=== PATIENT | male | born 1945 | race Caucasian/White ===

== ENCOUNTER 2016-02-17 15:11 | Outpatient (RCR) | payer BC, MEDICARE ==
--- OUTSIDE RECORDS SUMMARY | 2015-12-16 15:25 | XMS REPORT | Continuity of Care Document ---
Author Author [facility] Organization [facility] Address Unknown Phone Unavailable Care Team Providers Care Motorman/Woman Name Role Phone LUISILEANA DO PCP Insurance Providers Payer Name Policy Number Subscriber Name Relationship [facility] [id number] Alexx Yu 18 Self / Same As Patient Wps Medicare [id number] Alexx Yu 18 Self / Same As Patient Advance Directives Directive Response Recorded Date/Time Advance Directives No 12/25/13 9:04am Health Care Power of Pet Groomer No 12/25/13 9:04am Organ Donor No 12/25/13 9:04am Problems No known problems or medical conditions. Medications Medication Dose Route Sig Days/Qty Instructions Order Date Discontinued Date Status Atenolol 25 Mg PO TWICE A DAY 03/25/13 Active Lovastatin 10 Mg PO DAILY 03/25/13 Active Calcium Carbonate/Vitamin D3 1 Tab PO DAILY 03/25/13 Active Mu-Vits-Min Th/Lycopene/Lutein 1 Tab PO DAILY 03/25/13 Active Acetaminophen/Hydrocodone Bitart 1-2 Ea PO Q 4 - 6 HR PRN 03/27/13 12/24/13 Discontinued Hydrocodone/Acetaminophen 1-2 Each PO EVERY 6 HOURS 35 Qty 12/25/13 Active Social History Social History Problem Response Recorded Date/Time Recent Foreign Travel SEE [place] 04/27/2014 3:37pm Hospital Discharge Instructions No hospital discharge instructions. Plan of Care No plan of care. Functional Status No functional status results. Allergies, Adverse Reactions, Alerts Allergen Type Severity Reaction Status Last Updated No Known Drug Allergies Allergy Unknown Active 04/09/09 Immunizations Name Given Type Date of Pneumonia Vaccine 03/05/04 Historical Date of Influenza Vaccine 12/03/13 Historical Vital Signs Acute Vital Signs Vital Response Date/Time Height 6 ft 4 in Weight 243 lb Body Mass Index 29.6 kg/m^2 Results Laboratory Results Test Name Result Units Flags Reference Collection Date/Time Result Date/ Time Comments White Blood Count 5.3 10^3/uL 4.3-11.0 07/20/2014 2:30pm 07/20/2014 4: 34pm Red Blood Count 5.21 10^6/uL 4.35-5.85 07/20/2014 2:30pm 07/20/2014 4: 34pm Hemoglobin 15.4 G/DL 13.3-17.7 07/20/2014 2:30pm 07/20/2014 4:34pm Hematocrit 46 % 40-54 07/20/2014 2:30pm 07/20/2014 4:34pm Mean Corpuscular Volume 88 FL 80-99 07/20/2014 2:30pm 07/20/2014 4: 34pm Mean Corpuscular Hemoglobin 30 PG 25-34 07/20/2014 2:30pm 07/20/2014 4: 34pm Mean Corpuscular Hemoglobin Concent 34 G/DL 32-36 07/20/2014 2:30pm 4:34pm Red Cell Distribution Width 14.6 % H 10.0-14.5 07/20/2014 2:30pm 2014 4:34pm Platelet Count 233 10^3/uL 130-400 07/20/2014 2:30pm 07/20/2014 4:34pm Mean Platelet Volume 10.9 FL H 7.4-10.4 07/20/2014 2:30pm 07/20/2014 4: 34pm Neutrophils (%) (Auto) 59 % 42-75 07/20/2014 2:30pm 07/20/2014 4:34pm Lymphocytes (%) (Auto) 22 % 12-44 07/20/2014 2:30pm 07/20/2014 4:34pm Monocytes (%) (Auto) 14 % H 0-12 07/20/2014 2:30pm 07/20/2014 4:34pm Eosinophils (%) (Auto) 4 % 0-10 07/20/2014 2:30pm 07/20/2014 4:34pm Basophils (%) (Auto) 2 % 0-10 07/20/2014 2:30pm 07/20/2014 4:34pm Neutrophils # (Auto) 3.1 X 10^3 1.8-7.8 07/20/2014 2:30pm 07/20/2014 4: 34pm Lymphocytes # (Auto) 1.2 X 10^3 1.0-4.0 07/20/2014 2:30pm 07/20/2014 4: 34pm Monocytes # (Auto) 0.7 X 10^3 0.0-1.0 07/20/2014 2:30pm 07/20/2014 4: 34pm Eosinophils # (Auto) 0.2 10^3/uL 0.0-0.3 07/20/2014 2:30pm 07/20/2014 4 :34pm Basophils # (Auto) 0.1 10^3/uL 0.0-0.1 07/20/2014 2:30pm 07/20/2014 4: 34pm Sodium Level 138 MMOL/L 135-145 07/20/2014 2:30pm 07/20/2014 4:57pm Potassium Level 4.5 MMOL/L 3.6-5.0 07/20/2014 2:30pm 07/20/2014 4:57pm Chloride Level 106 MMOL/L 98-107 07/20/2014 2:30pm 07/20/2014 4:57pm Carbon Dioxide Level 25 MMOL/L 21-32 07/20/2014 2:30pm 07/20/2014 4: 57pm Blood Urea Nitrogen 12 MG/DL 7-18 07/20/2014 2:30pm 07/20/2014 4:57pm Creatinine 0.77 MG/DL 0.60-1.30 07/20/2014 2:30pm 07/20/2014 4:57pm BUN/Creatinine Ratio 16 07/20/2014 2:30pm 07/20/2014 4:57pm Estimat Glomerular Filtration Rate > 60 07/20/2014 2:30pm 2014 4:57pm GFR INTERPRETIVE DATA UNITS FOR ESTIMATED GFR (eGFR): mL/min/1.73 M2 REFERENCE RANGE FOR ESTIMATED GFR (eGFR) eGFR NORMAL eGFR >60 MODERATELY DECREASED eGFR 30-59 SEVERLY DECREASED eGFR 15-29 KIDNEY FAILURE <15 (OR DIALYSIS) Glucose Level 77 MG/DL 70-105 07/20/2014 2:30pm 07/20/2014 4:57pm Calcium Level 9.5 MG/DL 8.5-10.1 07/20/2014 2:30pm 07/20/2014 4:57pm Total Bilirubin 0.5 MG/DL 0.1-1.0 07/13/2014 2:30pm 07/13/2014 4:51pm Alkaline Phosphatase 104 U/L 40-136 07/13/2014 2:30pm 07/13/2014 4: 51pm Aspartate Amino Transf (AST/SGOT) 27 U/L 5-34 07/13/2014 2:30pm 2014 4:51pm Alanine Aminotransferase (ALT/SGPT) 22 U/L 0-55 07/13/2014 2:30pm 07/13 4:51pm Lactate Dehydrogenase 241 U/L H 125-220 07/13/2014 2:30pm 07/13/2014 4: 51pm Total Protein 6.3 G/DL L 6.4-8.2 07/13/2014 2:30pm 07/13/2014 4:51pm Albumin 3.9 G/DL 3.2-4.5 07/13/2014 2:30pm 07/13/2014 4:51pm White Blood Count 5.4 10^3/uL 4.3-11.0 07/01/2014 9:54am 07/01/2014 9: 57am Red Blood Count 5.08 10^6/uL 4.35-5.85 07/01/2014 9:54am 07/01/2014 9: 57am Hemoglobin 15.2 G/DL 13.3-17.7 07/01/2014 9:54am 07/01/2014 9:57am Hematocrit 44 % 40-54 07/01/2014 9:54am 07/01/2014 9:57am Mean Corpuscular Volume 87 FL 80-99 07/01/2014 9:54am 07/01/2014 9: 57am Mean Corpuscular Hemoglobin 30 PG 25-34 07/01/2014 9:54am 07/01/2014 9: 57am Mean Corpuscular Hemoglobin Concent 34 G/DL 32-36 07/01/2014 9:54 9:57am Red Cell Distribution Width 14.7 % H 10.0-14.5 07/01/2014 9:542014 9:57am Platelet Count 205 10^3/uL 130-400 07/01/2014 9:5407/01/2014 9:57am Mean Platelet Volume 10.2 FL 7.4-10.4 07/01/2014 9:5407/01/2014 9: 57am Neutrophils (%) (Auto) 64 % 42-75 07/01/2014 9:54am 07/01/2014 9:57am Lymphocytes (%) (Auto) 20 % 12-44 07/01/2014 9:5407/01/2014 9:57am Monocytes (%) (Auto) 12 % 0-12 07/01/2014 9:54am 07/01/2014 9:57am Eosinophils (%) (Auto) 4 % 0-10 07/01/2014 9:07/01/2014 9:57am Basophils (%) (Auto) 1 % 0-10 07/01/2014 9:5407/01/2014 9:57am Neutrophils # (Auto) 3.4 X 10^3 1.8-7.8 07/01/2014 9:07/01/2014 9: 57am Lymphocytes # (Auto) 1.1 X 10^3 1.0-4.0 07/01/2014 9:07/01/2014 9: 57am Monocytes # (Auto) 0.7 X 10^3 0.0-1.0 07/01/2014 9:5407/01/2014 9: 57am Eosinophils # (Auto) 0.2 10^3/uL 0.0-0.3 07/01/2014 9:5407/01/2014 9 :57am Basophils # (Auto) 0.1 10^3/uL 0.0-0.1 07/01/2014 9:5407/01/2014 9: 57am Sodium Level 140 MMOL/L 135-145 07/01/2014 9:54am 07/01/2014 10:26am Potassium Level 3.8 MMOL/L 3.6-5.0 07/01/2014 9:54am 07/01/2014 10: 26am Chloride Level 108 MMOL/L H 98-107 07/01/2014 9:54am 07/01/2014 10:26am Carbon Dioxide Level 23 MMOL/L 21-32 07/01/2014 9:54am 07/01/2014 10: 26am Blood Urea Nitrogen 10 MG/DL 7-18 07/01/2014 9:54am 07/01/2014 10:26am Creatinine 0.78 MG/DL 0.60-1.30 07/01/2014 9:54am 07/01/2014 10:26am BUN/Creatinine Ratio 13 07/01/2014 9:54am 07/01/2014 10:26am Estimat Glomerular Filtration Rate > 60 07/01/2014 9:54am 2014 10:26am GFR INTERPRETIVE DATA UNITS FOR ESTIMATED GFR (eGFR): mL/min/1.73 M2 REFERENCE RANGE FOR ESTIMATED GFR (eGFR) eGFR NORMAL eGFR >60 MODERATELY DECREASED eGFR 30-59 SEVERLY DECREASED eGFR 15-29 KIDNEY FAILURE <15 (OR DIALYSIS) Glucose Level 81 MG/DL 70-105 07/01/2014 9:5407/01/2014 10:26am Calcium Level 9.1 MG/DL 8.5-10.1 07/01/2014 9:5407/01/2014 10:26am Total Bilirubin 0.7 MG/DL 0.1-1.0 07/01/2014 9:54am 07/01/2014 10:26am Alkaline Phosphatase 115 U/L 40-136 07/01/2014 9:54am 07/01/2014 10: 26am Aspartate Amino Transf (AST/SGOT) 22 U/L 5-34 07/01/2014 9:54am 2014 10:26am Alanine Aminotransferase (ALT/SGPT) 15 U/L 0-55 07/01/2014 9:54am 07/01 10:26am Lactate Dehydrogenase 227 U/L H 125-220 07/01/2014 9:54am 07/01/2014 10: 26am Total Protein 6.3 G/DL L 6.4-8.2 07/01/2014 9:54am 07/01/2014 10:26am Albumin 4.0 G/DL 3.2-4.5 07/01/2014 9:54am 07/01/2014 10:26am Procedures No known history of procedures. Encounters Encounter Location Date/Time Discharged Recurring Via [facility] 07/20/14 2:32pm Registered Recurring Via [facility] 07/01/14 9:32am
[2015-12-16 17:01] LABS: BASOPHILS # (AUTO) 0.1 10^3/uL (0.0-0.1); BASOPHILS % (AUTO) 1 % (0-10); EOSINOPHILS # (AUTO) 0.3 10^3/uL (0.0-0.3); EOSINOPHILS % (AUTO) 4 % (0-10); LYMPHOCYTES # (AUTO) 1.4 X 10^3 (1.0-4.0); LYMPHOCYTES % (AUTO) 18 % (12-44); MEAN CORPUSCULAR HEMOGLOBIN 29 PG (25-34); MEAN CORPUSCULAR HGB CONC 33 G/DL (32-36); MEAN CORPUSCULAR VOLUME 88 FL (80-99); MEAN PLATELET VOLUME 10.3 FL (7.4-10.4); MONOCYTES # (AUTO) 0.8 X 10^3 (0.0-1.0); MONOCYTES % (AUTO) 10 % (0-12); NEUTROPHILS % (AUTO) 66 % (42-75); PLATELET COUNT 380 10^3/uL (130-400); RED BLOOD COUNT 4.49 10^6/uL (4.35-5.85); RED CELL DISTRIBUTION WIDTH 14.5 % (10.0-14.5); WHITE BLOOD COUNT 7.6 10^3/uL (4.3-11.0)
[2015-12-16 17:40] LABS: ALANINE AMINOTRANSFERASE 24 U/L (0-55); ANION GAP 10 MMOL/L (5-14); ASPARTATE AMINO TRANSFERASE 21 U/L (5-34); BILIRUBIN,TOTAL 0.3 MG/DL (0.1-1.0); BLOOD UREA NITROGEN 12 MG/DL (7-18); BUN/CREATININE RATIO 14; CARBON DIOXIDE 28 MMOL/L (21-32); CHLORIDE 103 MMOL/L (98-107); CREATININE SERUM 0.83 MG/DL (0.60-1.30); GFR ESTIMATED > 60; GLUCOSE 87 MG/DL (70-105); LACTATE DEHYDROGENASE 187 U/L (125-220); SODIUM 141 MMOL/L (135-145); TOTAL PROTEIN 6.9 G/DL (6.4-8.2)
[2016-01-13 16:30] LABS: BASOPHILS # (AUTO) 0.1 10^3/uL (0.0-0.1); BASOPHILS % (AUTO) 1 % (0-10); EOSINOPHILS # (AUTO) 0.3 10^3/uL (0.0-0.3); EOSINOPHILS % (AUTO) 4 % (0-10); LYMPHOCYTES # (AUTO) 1.2 X 10^3 (1.0-4.0); LYMPHOCYTES % (AUTO) 16 % (12-44); MEAN CORPUSCULAR HEMOGLOBIN 29 PG (25-34); MEAN CORPUSCULAR HGB CONC 33 G/DL (32-36); MEAN CORPUSCULAR VOLUME 87 FL (80-99); MEAN PLATELET VOLUME 10.9 FL (7.4-10.4); MONOCYTES # (AUTO) 0.8 X 10^3 (0.0-1.0); MONOCYTES % (AUTO) 10 % (0-12); NEUTROPHILS # (AUTO) 5.3 X 10^3 (1.8-7.8); NEUTROPHILS % (AUTO) 68 % (42-75); PLATELET COUNT 235 10^3/uL (130-400); RED BLOOD COUNT 4.84 10^6/uL (4.35-5.85); RED CELL DISTRIBUTION WIDTH 15.5 % (10.0-14.5); WHITE BLOOD COUNT 7.8 10^3/uL (4.3-11.0)
[2016-01-13 17:06] LABS: ALANINE AMINOTRANSFERASE 18 U/L (0-55); ALBUMIN 4.4 G/DL (3.2-4.5); ANION GAP 10 MMOL/L (5-14); ASPARTATE AMINO TRANSFERASE 22 U/L (5-34); BILIRUBIN,TOTAL 0.6 MG/DL (0.1-1.0); BLOOD UREA NITROGEN 13 MG/DL (7-18); BUN/CREATININE RATIO 15; CARBON DIOXIDE 26 MMOL/L (21-32); CHLORIDE 103 MMOL/L (98-107); CREATININE SERUM 0.88 MG/DL (0.60-1.30); GFR ESTIMATED > 60; GLUCOSE 95 MG/DL (70-105); LACTATE DEHYDROGENASE 266 U/L (125-220); POTASSIUM 4.3 MMOL/L (3.6-5.0); SODIUM 139 MMOL/L (135-145); TOTAL PROTEIN 6.7 G/DL (6.4-8.2)
[~2016-02-17] VITALS: Ht 193 cm; Wt 108.9 kg
[~2016-02-17 15:11] MED LIST: ACETAMINOPHEN 500 MG TAB (TYLENOL) CANCER CTR PO SCH; ATEN25TA PO; CALC-80 PO; HYDR-34 PO; HYDR-3730 PO; LOVA10TA PO; MULT-1029 PO; NS (IVPB) CANCER CENTER 250 ML IV SCH; diphenhydrAMINE 25 MG TAB (BENADRYL) CANCER CENTER PO SCH; riTUXimab 500 MG, riTUXimab FOR IV INJ CONC 200 MG in NS (IVPB) CANCER CENTER ONLY 150 ML IV SCH
== END 2016-03-09 10:13 | disposition home or self-care (01) ==
LOC: PAR 15:11
PROVIDERS: ATTEND Internal Medicine Hematology & Oncology
DX: Z51.11 Encounter for antineoplastic chemotherapy (principal); C85.80 Other specified types of non-Hodgkin lymphoma, unspecified site; Z45.2 Encounter for adjustment and management of vascular access device
CPT/HCPCS: 36591; 80053; 83615; 85025; 96413; 96523; 99213

== ENCOUNTER 2016-06-08 13:24 | Outpatient (RCR) | payer BC, MEDICARE ==
--- OUTSIDE RECORDS SUMMARY | 2016-03-16 13:23 | XMS REPORT | Continuity of Care Document ---
Author Author [facility] Organization [facility] Address Unknown Phone Unavailable Care Team Providers Care Swine Extension Field Specialist Name Role Phone LUISILEANA DO PCP Insurance Providers Payer Name Policy Number Subscriber Name Relationship [facility] [id number] Alexx Yu 18 Self / Same As Patient Wps Medicare [id number] Alexx Yu 18 Self / Same As Patient Advance Directives Directive Response Recorded Date/Time Advance Directives No 12/25/13 9:04am Health Care Power of Infrastructure Director No 12/25/13 9:04am Organ Donor No 12/25/13 [...] Encounters Encounter Location Date/Time Discharged Recurring Via [facility] 07/20/14 2:32pm Registered Recurring Via [facility] 07/01/14 9:32am
[2016-05-04 16:21] LABS: BASOPHILS # (AUTO) 0.1 10^3/uL (0.0-0.1); BASOPHILS % (AUTO) 1 % (0-10); EOSINOPHILS # (AUTO) 0.3 10^3/uL (0.0-0.3); EOSINOPHILS % (AUTO) 4 % (0-10); LYMPHOCYTES # (AUTO) 1.6 X 10^3 (1.0-4.0); LYMPHOCYTES % (AUTO) 20 % (12-44); MEAN CORPUSCULAR HEMOGLOBIN 30 PG (25-34); MEAN CORPUSCULAR HGB CONC 34 G/DL (32-36); MEAN CORPUSCULAR VOLUME 86 FL (80-99); MEAN PLATELET VOLUME 10.6 FL (7.4-10.4); MONOCYTES # (AUTO) 0.7 X 10^3 (0.0-1.0); MONOCYTES % (AUTO) 9 % (0-12); NEUTROPHILS # (AUTO) 5.3 X 10^3 (1.8-7.8); NEUTROPHILS % (AUTO) 66 % (42-75); PLATELET COUNT 216 10^3/uL (130-400); RED BLOOD COUNT 4.92 10^6/uL (4.35-5.85); RED CELL DISTRIBUTION WIDTH 14.9 % (10.0-14.5)
[2016-05-04 16:40] LABS: ALANINE AMINOTRANSFERASE 18 U/L (0-55); ALBUMIN 4.3 G/DL (3.2-4.5); ANION GAP 11 MMOL/L (5-14); ASPARTATE AMINO TRANSFERASE 26 U/L (5-34); BILIRUBIN,TOTAL 0.3 MG/DL (0.1-1.0); BLOOD UREA NITROGEN 13 MG/DL (7-18); BUN/CREATININE RATIO 13; CALCIUM 9.3 MG/DL (8.5-10.1); CARBON DIOXIDE 24 MMOL/L (21-32); CHLORIDE 103 MMOL/L (98-107); GFR ESTIMATED > 60; GLUCOSE 89 MG/DL (70-105); LACTATE DEHYDROGENASE 214 U/L (125-220); SODIUM 138 MMOL/L (135-145); TOTAL PROTEIN 6.5 G/DL (6.4-8.2)
[~2016-06-08] VITALS: Ht 193 cm; Wt 108.9 kg
[2016-06-08 16:20] LABS: BASOPHILS # (AUTO) 0.1 10^3/uL (0.0-0.1); BASOPHILS % (AUTO) 1 % (0-10); EOSINOPHILS # (AUTO) 0.3 10^3/uL (0.0-0.3); EOSINOPHILS % (AUTO) 4 % (0-10); LYMPHOCYTES # (AUTO) 1.3 X 10^3 (1.0-4.0); LYMPHOCYTES % (AUTO) 17 % (12-44); MEAN CORPUSCULAR HEMOGLOBIN 29 PG (25-34); MEAN CORPUSCULAR HGB CONC 34 G/DL (32-36); MEAN CORPUSCULAR VOLUME 88 FL (80-99); MEAN PLATELET VOLUME 11.2 FL (7.4-10.4); MONOCYTES # (AUTO) 0.6 X 10^3 (0.0-1.0); MONOCYTES % (AUTO) 8 % (0-12); NEUTROPHILS # (AUTO) 5.4 X 10^3 (1.8-7.8); NEUTROPHILS % (AUTO) 71 % (42-75); PLATELET COUNT 201 10^3/uL (130-400); RED CELL DISTRIBUTION WIDTH 15.5 % (10.0-14.5); WHITE BLOOD COUNT 7.7 10^3/uL (4.3-11.0)
[2016-06-08 16:53] LABS: ALANINE AMINOTRANSFERASE 15 U/L (0-55); ALBUMIN 4.2 G/DL (3.2-4.5); ANION GAP 11 MMOL/L (5-14); ASPARTATE AMINO TRANSFERASE 25 U/L (5-34); BILIRUBIN,TOTAL 0.7 MG/DL (0.1-1.0); BLOOD UREA NITROGEN 19 MG/DL (7-18); BUN/CREATININE RATIO 20; CALCIUM 9.2 MG/DL (8.5-10.1); CARBON DIOXIDE 25 MMOL/L (21-32); CHLORIDE 105 MMOL/L (98-107); CREATININE SERUM 0.97 MG/DL (0.60-1.30); GFR ESTIMATED > 60; GLUCOSE 113 MG/DL (70-105); LACTATE DEHYDROGENASE 212 U/L (125-220); POTASSIUM 3.9 MMOL/L (3.6-5.0); SODIUM 141 MMOL/L (135-145); TOTAL PROTEIN 6.1 G/DL (6.4-8.2)
== END 2016-06-14 | disposition home or self-care (01) ==
LOC: PAR 13:24
PROVIDERS: ATTEND Internal Medicine Hematology & Oncology
DX: Z51.11 Encounter for antineoplastic chemotherapy (principal); C85.80 Other specified types of non-Hodgkin lymphoma, unspecified site; Z45.2 Encounter for adjustment and management of vascular access device
CPT/HCPCS: 36591; 80053; 83615; 85025; 96413; 96523; 99213

== ENCOUNTER → 2016-06-29 | Outpatient (CLI) | payer BC, MEDICARE ==
[~2016-06-29] MED LIST changes: -ACETAMINOPHEN 500 MG TAB (TYLENOL) CANCER CTR PO SCH; +BARIUM SUSPENSION 2.1% (VANILLA SILQ) 450 ML PO ONE; +CATHETER FLUSH 10 ML SYR IV PRN; +IOHEXOL 350 MG/ML 100 ML (OMNIPAQUE 350) VIAL IV ONE; -NS (IVPB) CANCER CENTER 250 ML IV SCH; +NS 100 ML (IVPB) BAG IV ONE; -diphenhydrAMINE 25 MG TAB (BENADRYL) CANCER CENTER PO SCH; -riTUXimab 500 MG, riTUXimab FOR IV INJ CONC 200 MG in NS (IVPB) CANCER CENTER ONLY 150 ML IV SCH
--- NOTE | 2016-06-29 09:00 | Diagnostic Imaging Report ---
PROCEDURE: CT chest, abdomen, and pelvis with contrast. TECHNIQUE: Multiple contiguous axial images were obtained through the chest, abdomen, and pelvis after the administration of intravenous contrast. INDICATION: Follicular large cell non-Hodgkin's lymphoma. 100 mL of Omnipaque 350 is administered intravenously. COMPARISON: 09/14/2014 CT chest and 08/05/2013 PET/CT are reviewed. FINDINGS: CT CHEST: There is interval development of a bulky infracarinal lymph node mass measuring 8.1 x 7.6 x 7.2 CM. There is also a left hilar lymph node measuring 3.1 x 3.6 CM which is abutting the large subcarinal mass. No right hilar lymphadenopathy. The mediastinal mass also extends directly into the left hilar region around the left mainstem bronchus. There is also inferiorly in the chest in the retro esophageal location just above the GE junction and anterior to the descending aorta 2.8 x 2.7 CM enlarged lymph node mass. This is less than 1 cm distal to the main mediastinal mass. No other separate mediastinal stations involved. No axillary lymphadenopathy. The lungs demonstrate upper lobe predominant emphysema. There is no lung mass or suspicious nodule seen. 5 mm nodular density in the right upper lobe, image 24 is stable from 2015 suggestive of a small focal scar. The osseous structures demonstrate mild right convexity scoliosis and degenerative changes. CT abdomen and pelvis: The liver demonstrate a 1 cm cystic lesion in the left hepatic lobe without change. The gallbladder, the spleen, the pancreas, and the adrenals appear unremarkable. The spleen is not enlarged. The kidneys have symmetric enhancement and contrast excretion. There is no hydronephrosis. The abdominal aorta is normal in caliber. No para-aortic significantly enlarged lymph node is seen. The prostate is mildly enlarged measuring 5.5 CM in transverse dimension. There is no bowel obstruction. No iliac lymphadenopathy. There is however a 5.5 x 4.5 CM lymph node in the right inguinal station estimated to be about 5 CM in craniocaudal dimension. It is incompletely imaged from its inferior aspect however. IMPRESSION: Findings suggestive of lymphoma recurrence. CT chest: Bulky infracarinal mediastinal mass with extension into the left hilum and adjacent inferior retroesophageal enlarged lymph node. CT abdomen and pelvis: A 5.5 cm right inguinal lymph node mass. Dictated by: Dictated on workstation # [id number]
== END ==
LOC: RAD 07:36
PROVIDERS: ATTEND Internal Medicine Hematology & Oncology
DX: C82.59 Diffuse follicle center lymphoma, extranodal and solid organ sites (principal)
CPT/HCPCS: 71260; 74177

== ENCOUNTER 2016-07-26 11:24 | Day surgery (SDC) | payer BC, MEDICARE ==
[~2016-07-26] VITALS: Ht 185.4 cm; Wt 99.8 kg
[~2016-07-26 11:24] MED LIST changes: -BARIUM SUSPENSION 2.1% (VANILLA SILQ) 450 ML PO ONE; -CATHETER FLUSH 10 ML SYR IV PRN; -IOHEXOL 350 MG/ML 100 ML (OMNIPAQUE 350) VIAL IV ONE; -NS 100 ML (IVPB) BAG IV ONE
[2016-07-26] MEDS ORDERED: LACTATED RINGERS 1,000 ML IV PRN (11:45)
--- NOTE | 2016-07-26 12:03 | Progress Note-Pre Operative ---
Pre-Operative Progress Note H&P Reviewed The H&P was reviewed, patient examined and no changes noted. Date H&P Reviewed: July 26, 2016 Time H&P Reviewed: 12:00 Pre-Operative Diagnosis: right groin mass with hx lymphoma ORLIN BELTRE MD July 26, 2016 12:03 pm
[2016-07-26 12:13] VITALS: BP 162/88
[2016-07-26] MEDS ORDERED: CATHETER FLUSH 10 ML SYR IV PRN (12:15)
[2016-07-26] MEDS ORDERED: ACETAMINOPHEN 325 MG TABLET/CAPLET (TYLENOL) PO PRN (12:15)
[2016-07-26] MEDS ORDERED: ONDANSETRON 4 MG/2 ML (SDV) Z0FRAN IVP PRN (12:15)
[2016-07-26] MEDS ORDERED: morphine INJ 10 MG/ML 1ML (SYR OR VIAL) IVP PRN ×2 (12:15→14:45)
[2016-07-26] MEDS ORDERED: HYDROcodone/APAP 5 MG/325 MG (LORTAB) TAB PO ONE (12:15)
[2016-07-26] MEDS ORDERED: ceFAZolin 1 GM/NS 50 ML IVPB IV ONE ×2 (12:15)
[2016-07-26] MEDS ORDERED: LACTATED RINGERS 1,000 ML IV ONE (12:22)
[2016-07-26] MEDS ORDERED: fentaNYL INJECTION 100 MCG/2 ML AMP ONE (12:22)
[2016-07-26] MEDS ORDERED: proPOfol 200 MG/20 ML (DIPRIVAN) VIAL IV ONE (12:22)
[2016-07-26] MEDS ORDERED: MIDAZOLAM 2 MG/2 ML (VERSED) VIAL ONE (12:22)
[2016-07-26] MEDS ORDERED: SEVOFLURANE (ULTANE) 15 ML INHAL SOLN ONE ×3 (12:22→14:27)
[2016-07-26] MEDS ORDERED: LIDOCAINE PF 2% 10 ML (XYLOCAINE) AMP ONE (12:22)
[2016-07-26] MEDS ORDERED: BUP/EPI 0.5% 1:200,000 (SENSORCAINE) 30 ML VIAL ONE (12:27)
--- NOTE | 2016-07-26 14:11 | Progress Note-Post Operative ---
Post-Operative Progess Note Surgeon (s)/Provider Engagement Executive (s) Surgeon ORLIN BELTRE MD Provider Engagement Executive: irma curtis INSERTING PRESS OPERATOR Pre-Operative Diagnosis Right Groin Mass with Hx Lymphoma Post-Operative Diagnosis same. large deep right inguinal node (9x7cm). Procedure & Operative Findings Date of Procedure 07/26/16 Procedure Performed/Findings excision right deep inguinal lymph node (9x7cm) Anesthesia Type General LMA Estimated Blood Loss Estimated blood loss (mL): minimal Specimens/Packing Specimens Removed matted lymph nodes right inguinal region. ORLIN BELTRE MD July 26, 2016 2:11 pm
[2016-07-26] MEDS ORDERED: HYDR-3730 PO (14:15)
--- NOTE | 2016-07-26 14:18 | Discharge Inst-Surgical ---
D/C Lap Instructions-PATT New, Converted, or Re-Newed RX: RX on Chart Follow up PRN Activity as tolerated Regular Diet Symptoms to Report: Fever over 101 degree F, Nausea/Vomiting Infection Signs and Symptoms to report: Increased redness, Foul odor of wound, Increased drainage Bathing instructions: May shower Operative Area Clean/Dry; Keep incision clean/dry If any problems/questions: Contact your physician or go to Emergency Room ORLIN BELTRE MD July 26, 2016 2:18 pm
[2016-07-26] MEDS ORDERED: ONDANSETRON 4 MG/2 ML (SDV) Z0FRAN ONE (14:36)
[2016-07-26] MEDS ORDERED: HYDROmorphone (DILAUDID) 2 MG/ML VIAL ONE (14:36)
[2016-07-26] MEDS ORDERED: fentaNYL INJECTION 100 MCG/2 ML AMP IVP PRN (14:45)
[2016-07-26 15:30] VITALS: BP 122/71
[2016-07-26 16:00] VITALS: BP 129/63
[2016-07-26 16:30] VITALS: BP 134/74
[2016-07-26 16:55] VITALS: BP 134/74
--- NOTE | 2016-07-27 02:01 | OPERATIVE REPORT ---
DATE OF SERVICE: 07/26/2016 PREOPERATIVE DIAGNOSIS: Symptomatic right inguinal lymphadenopathy with history of lymphoma. POSTOPERATIVE DIAGNOSES: Symptomatic right inguinal lymphadenopathy with history of lymphoma with the dimensions of the lymph node 9 cm x 7 cm in size and considered deep inguinal. PROCEDURES: 1. Excision malignant lesion, right groin, 9 cm x 7 cm in size. 2. Intermediate flap closure. SURGEON: Dr. Beltre. INFANTRY OFFICER: Kaveh Bhakta APRN. ANESTHESIA: General laryngeal mask airway. ESTIMATED BLOOD LOSS: Minimal. FINDINGS: Large matted lymph node encompassing majority of the inguinal region as well as the femoral canal and Eden's node. DISPOSITION: The patient tolerated the procedure well. The patient is a 68-year-old male whom we have seen before in the past. We had initially seen in 03/2013 after developing lymphadenopathy in the neck. He first developed lymphadenopathy of the inguinal region in 2009 and underwent an inguinal lymph node biopsy, found to be consistent with a lipoma. He underwent 4 cycles of CHOP-R regimen, which was completed in 07/2009. This was diagnosed as a follicular B cell non-Hodgkin's lymphoma, grade I, stage IV. He had done well and did develop recurrence of lymphadenopathy in the neck and underwent an excisional biopsy of the right posterior neck, which did come back as B-cell lymphoma between grade I and II. He then underwent six cycles of chemotherapy in 04/2013, completing in 09/2013. He reports that he has done well; however, has had a recurrent lesion of the right inguinal region, which has grown significantly larger in size and because of the size of the lesion has become somewhat painful. On examination, there was approximately a 9 cm, firm lesion of the right inguinal lesion, which was fixed. He does not report any systemic symptoms of fever nor chills as well as no weight loss. DESCRIPTION OF PROCEDURE: The patient was brought to the operating room, laid supine on the table. After adequate IV pain and sedative medications and general laryngeal mask airway intubation, the abdomen and perineum were prepped and draped in standard surgical fashion. Then 0.5% Marcaine with epinephrine was then used to anesthetize the overlying skin in an oblique fashion of the right groin. Skin incision was then made using a 15 blade. Subcutaneous tissue was then dissected using electrocautery. A fixed, large, malignant-appearing mass was identified. We then proceeded with meticulous dissection of the entire lesion using electrocautery as well as blunt dissection. This lesion also did encroach into the femoral canal and encompassed Eden node. This was completely excised using careful dissection with visualization of good hemostasis. The lymph node was also adjacent to the femoral vein; however, I did not encroach upon it. Good hemostasis was observed. The specimen was sent to pathology. The wound was then closed in an intermediate fashion in layers encompassing multiple layers including the fascia, subcutaneous tissue and skin. The subcutaneous tissue using interrupted 3-0 Vicryl sutures. Skin was closed using 4-0 Monocryl running subcuticular suture. The wound was then cleaned and covered with Dermabond. The patient tolerated the procedure well. We will start IV and oral pain medication as well as a clear liquid diet. Once he is tolerating clears and has good pain control oral pain medications, ambulating well, we will discharge him home. He will await the biopsy results and then follow up with oncology for chemotherapy recommendations. Job ID: [id number] DocumentID: [id number] Dictated Date: 07/26/2016 14:25:21 [employer] Social Studies Teacher Date: 07/27/2016 00:50:20 Dictated By: ORLIN BELTRE MD
--- NOTE | 2016-07-28 07:41 | HISTORY AND PHYSICAL ---
DATE OF SERVICE: ATTENDING PHYSICIAN: Dr. Pandey and Dr. Tobin HISTORY OF PRESENT ILLNESS: The patient is a 70-year-old male who is known to us. He was initially seen in 03/2013 after developing a lymphadenopathy of the neck. This gentleman reports initially developing lymphadenopathy of the inguinal region in 2009 and underwent an inguinal lymph node biopsy, which was found to be consistent with lymphoma. He then underwent 4 cycles of CHOP-R regimen, which was completed in 07/2009. This was diagnosed as a follicular B cell non-Hodgkin's lymphoma grade 1 stage III. He states he had done well over time; however, he then developed a recurrence of the lymphadenopathy of the neck. He then underwent incisional biopsy of the lymph node of the right posterior neck, which did come back as a beta cell lymphoma grade 1 and 2. After this diagnosis was made, he underwent 6 cycles of chemotherapy from 04/2013 and completing it approximately 09/2013. He was then seen by us again in 12/2013 where he had noticed a recurrence of the lesion of the right preauricular region. He had reported that this had grown larger in size and this appeared to be well circumscribed, but there was no other lymphadenopathy identified at that time. An excisional biopsy was performed, which did come back as a low grade CD20, positive B cell non-Hodgkin lymphoma that was follicular lymphoma grade 1 to 2 of 3. He reports today for a right inguinal mass that he reports that it was first noticed approximately 3 weeks ago and has become larger in size. He reports that this is the same area that he had previously had a mass. He denies any pain as well as no fever or chills. He denies any diarrhea or constipation as well as no weight loss. PAST MEDICAL HISTORY: COPD, hypertension, hypercholesterolemia, B cell lymphoma. 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 ALLERGIES: No known drug allergies. MEDICATIONS: Atenolol 25 mg daily, lovastatin 10 mg, multivitamin daily, calcium daily. SOCIAL HISTORY: Positive for smoke, 48 pack years, negative for alcohol. FAMILY HISTORY: Father with myocardial infarction, age 67, mother with diabetes. VITAL SIGNS: Blood pressure is 116/78, current weight is 228.1 pounds at 6 foot 4. REVIEW OF SYSTEMS: This is a well-nourished male in no acute distress. He is not experiencing any shortness of breath or difficulty breathing. No chest pain, platelets or diaphoresis. No nausea or vomiting. No episodes of diarrhea or constipation. No bright red blood per rectum. No dark tarry stools. No fever or chills. No recent inadvertent weight loss. PHYSICAL EXAMINATION: CHEST: Clear. HEART: Regular. EXTREMITIES: No lower extremity edema. Negative Hohmann sign. HEENT: No scleral icterus. LYMPHATICS: No cervical lymphadenopathy. ABDOMEN: Soft, nontender, nondistended. There is a large mass identified in the inguinal region that is firm and well circumscribed. There is no pain or tenderness with palpation. This does not appear to be reducible or consistent with an inguinal hernia. There is no lymphadenopathy noted in the inguinal region. ASSESSMENT AND PLAN: A 70-year-old male with a right inguinal mass who does have a history B cell lymphoma. At this time, we will proceed with a biopsy of the right groin mass. The risks and benefits of the procedure as well as procedure and home care instructions were also explained to the patient. The patient verbalized understanding of instructions and agrees to proceed as planned. At this time, we will proceed with a biopsy of the right inguinal mass. Job ID: [id number] DocumentID: [id number] Dictated Date: 07/25/2016 17:36:19 Nail Professional Date: 07/25/2016 21:40:46 Dictated By: VICKI HAMPTON APRN
== END 2016-07-26 16:55 | disposition home or self-care (01) ==
LOC: SDC 11:24
PROVIDERS: ATTEND Surgery Pediatric Surgery
DX: C82.05 Follicular lymphoma grade I, lymph nodes of inguinal region and lower limb (principal); I10 Essential (primary) hypertension; E78.00 Pure hypercholesterolemia, unspecified; J44.9 Chronic obstructive pulmonary disease, unspecified; F17.210 Nicotine dependence, cigarettes, uncomplicated
CPT/HCPCS: 87081

== ENCOUNTER → 2016-08-22 | Outpatient (CLI) | payer BC, MEDICARE ==
[~2016-08-22] MED LIST changes: +GADOBUTROL 10 MMOL/10 ML (GADAVIST) VIAL IV ONE
--- NOTE | 2016-08-22 10:25 | Diagnostic Imaging Report ---
PROCEDURE: MR imaging of the brain with and without contrast. TECHNIQUE: Multiplanar, multisequence MR imaging of the brain was performed with and without contrast. INDICATION: Lymphoma. 10 mL of Gadavist is administered intravenously. FINDINGS: There is no diffusion restriction to suggest an acute infarct or other diffusion abnormality. There is no significant signal abnormality in the brain. No brain edema or demyelinating lesions. There is a no enhancing mass within the brain tissue or in the extra-axial space. No evidence of intracranial lymphoma. The pituitary gland is normal in size. No hypothalamic or pineal region mass. There is no hydrocephalus or extra-axial fluid collection seen. The central vascular flow-voids appear grossly unremarkable. The internal auditory canals and inner ear structures appear symmetric. There is obliteration of some of the left ethmoidal air cells probably with secretions and there is mucosal thickening in the right sphenoidal sinus which is small in size probably secondary to chronic sinusitis. The right sphenoidal sinus findings are similar to 2015 CT scan. The orbits appear symmetric. IMPRESSION: 1. No acute infarct or enhancing mass. 2. Sinus disease. Dictated by: Dictated on workstation # [id number]
== END ==
LOC: RAD 09:04
PROVIDERS: ATTEND Internal Medicine Hematology & Oncology
DX: C82.59 Diffuse follicle center lymphoma, extranodal and solid organ sites (principal); J32.9 Chronic sinusitis, unspecified
CPT/HCPCS: 70553

== ENCOUNTER 2016-09-21 10:13 | Outpatient (RCR) | payer BC, MEDICARE ==
[2016-06-29 16:17] LABS: BASOPHILS # (AUTO) 0.1 10^3/uL (0.0-0.1); BASOPHILS % (AUTO) 2 % (0-10); EOSINOPHILS # (AUTO) 0.2 10^3/uL (0.0-0.3); EOSINOPHILS % (AUTO) 3 % (0-10); LYMPHOCYTES # (AUTO) 1.2 X 10^3 (1.0-4.0); LYMPHOCYTES % (AUTO) 18 % (12-44); MEAN CORPUSCULAR HEMOGLOBIN 30 PG (25-34); MEAN CORPUSCULAR HGB CONC 34 G/DL (32-36); MEAN CORPUSCULAR VOLUME 88 FL (80-99); MEAN PLATELET VOLUME 11.1 FL (7.4-10.4); MONOCYTES # (AUTO) 0.5 X 10^3 (0.0-1.0); MONOCYTES % (AUTO) 9 % (0-12); NEUTROPHILS # (AUTO) 4.4 X 10^3 (1.8-7.8); NEUTROPHILS % (AUTO) 69 % (42-75); PLATELET COUNT 193 10^3/uL (130-400); RED BLOOD COUNT 4.87 10^6/uL (4.35-5.85); WHITE BLOOD COUNT 6.4 10^3/uL (4.3-11.0)
[2016-06-29 16:36] LABS: ALANINE AMINOTRANSFERASE 19 U/L (0-55); ALBUMIN 4.3 G/DL (3.2-4.5); ANION GAP 9 MMOL/L (5-14); ASPARTATE AMINO TRANSFERASE 26 U/L (5-34); BILIRUBIN,TOTAL 0.6 MG/DL (0.1-1.0); BLOOD UREA NITROGEN 9 MG/DL (7-18); BUN/CREATININE RATIO 12; CALCIUM 9.3 MG/DL (8.5-10.1); CARBON DIOXIDE 25 MMOL/L (21-32); CHLORIDE 104 MMOL/L (98-107); CREATININE SERUM 0.78 MG/DL (0.60-1.30); GFR ESTIMATED > 60; GLUCOSE 88 MG/DL (70-105); LACTATE DEHYDROGENASE 240 U/L (125-220); POTASSIUM 4.4 MMOL/L (3.6-5.0); SODIUM 138 MMOL/L (135-145); TOTAL PROTEIN 6.3 G/DL (6.4-8.2)
[2016-06-30 06:08] LABS: IMMUNOGLOBULIN IGA 114 mg/dL (71-263); IMMUNOGLOBULIN IGG 423 mg/dL (672-1680)
[2016-06-30 08:14] LABS: IMMUNOGLOBULIN IGM 12 mg/dL (47-209)
[2016-08-03 16:19] LABS: BASOPHILS # (AUTO) 0.2 10^3/uL (0.0-0.1); BASOPHILS % (AUTO) 2 % (0-10); EOSINOPHILS # (AUTO) 0.4 10^3/uL (0.0-0.3); EOSINOPHILS % (AUTO) 5 % (0-10); LYMPHOCYTES # (AUTO) 1.7 X 10^3 (1.0-4.0); LYMPHOCYTES % (AUTO) 21 % (12-44); MEAN CORPUSCULAR HEMOGLOBIN 30 PG (25-34); MEAN CORPUSCULAR HGB CONC 34 G/DL (32-36); MEAN CORPUSCULAR VOLUME 88 FL (80-99); MEAN PLATELET VOLUME 10.9 FL (7.4-10.4); MONOCYTES # (AUTO) 0.8 X 10^3 (0.0-1.0); MONOCYTES % (AUTO) 10 % (0-12); NEUTROPHILS # (AUTO) 5.2 X 10^3 (1.8-7.8); NEUTROPHILS % (AUTO) 63 % (42-75); PLATELET COUNT 227 10^3/uL (130-400); RED BLOOD COUNT 4.66 10^6/uL (4.35-5.85); RED CELL DISTRIBUTION WIDTH 14.8 % (10.0-14.5); WHITE BLOOD COUNT 8.4 10^3/uL (4.3-11.0)
[2016-08-03 17:03] LABS: ALANINE AMINOTRANSFERASE 18 U/L (0-55); ALBUMIN 4.3 G/DL (3.2-4.5); ANION GAP 10 MMOL/L (5-14); ASPARTATE AMINO TRANSFERASE 22 U/L (5-34); BILIRUBIN,TOTAL 0.6 MG/DL (0.1-1.0); BLOOD UREA NITROGEN 14 MG/DL (7-18); BUN/CREATININE RATIO 15; CALCIUM 9.7 MG/DL (8.5-10.1); CARBON DIOXIDE 26 MMOL/L (21-32); CHLORIDE 105 MMOL/L (98-107); CREATININE SERUM 0.93 MG/DL (0.60-1.30); GFR ESTIMATED > 60; GLUCOSE 111 MG/DL (70-105); LACTATE DEHYDROGENASE 219 U/L (125-220); SODIUM 141 MMOL/L (135-145); TOTAL PROTEIN 6.7 G/DL (6.4-8.2)
[2016-08-05 03:24] LABS: IMMUNOGLOBULIN IGA 99 mg/dL (71-263); IMMUNOGLOBULIN IGG 366 mg/dL (672-1680)
[2016-08-05 09:16] LABS: IMMUNOGLOBULIN IGM 24 mg/dL (47-209)
[~2016-09-21] VITALS: Ht 193 cm; Wt 108.9 kg
[~2016-09-21 10:13] MED LIST changes: +ACETAMINOPHEN 500 MG TAB (TYLENOL) CANCER CTR PO SCH; +CARBOPLATIN IV SCH; +D5W IV SCH; +FAMOTIDINE 20MG/2ML IV (CANCER CTR) IV SCH; +FOSAPREPITANT 150 MG/NS 150 MG IVPB (CANCER CTR) IV SCH; -GADOBUTROL 10 MMOL/10 ML (GADAVIST) VIAL IV ONE; +GEMCITABINE HCL (GENERIC) 2,000 MG in NS (IVPB) CANCER CENTER 100 ML IV SCH; +NS IV 1000 ML (CANCER CTR) 1,000 ML IV SCH; +PALONOSETRON 0.25 MG, DEXAMETHASONE 10 MG/NS 50 ML IVPB IV SCH; +diphenhydrAMINE 25 MG TAB (BENADRYL) CANCER CENTER PO SCH; +riTUXimab 500 MG, riTUXimab FOR IV INJ CONC 200 MG in NS (IVPB) CANCER CENTER ONLY 150 ML IV SCH
== END 2016-09-27 | disposition home or self-care (01) ==
LOC: PAR 10:13
PROVIDERS: ATTEND Internal Medicine Hematology & Oncology
DX: Z51.11 Encounter for antineoplastic chemotherapy (principal); C85.80 Other specified types of non-Hodgkin lymphoma, unspecified site
CPT/HCPCS: 36591; 80053; 82784; 83615; 85025; 96375; 96413; 96417; 99213

== ENCOUNTER 2016-10-12 09:07 | Outpatient (RCR) | payer BC, MEDICARE ==
[2016-08-24 09:42] LABS: BASOPHILS # (AUTO) 0.1 10^3/uL (0.0-0.1); BASOPHILS % (AUTO) 1 % (0-10); EOSINOPHILS # (AUTO) 0.2 10^3/uL (0.0-0.3); EOSINOPHILS % (AUTO) 3 % (0-10); LYMPHOCYTES # (AUTO) 1.9 X 10^3 (1.0-4.0); LYMPHOCYTES % (AUTO) 21 % (12-44); MEAN CORPUSCULAR HEMOGLOBIN 29 PG (25-34); MEAN CORPUSCULAR HGB CONC 33 G/DL (32-36); MEAN CORPUSCULAR VOLUME 89 FL (80-99); MEAN PLATELET VOLUME 10.8 FL (7.4-10.4); MONOCYTES # (AUTO) 0.7 X 10^3 (0.0-1.0); MONOCYTES % (AUTO) 8 % (0-12); NEUTROPHILS # (AUTO) 6.2 X 10^3 (1.8-7.8); NEUTROPHILS % (AUTO) 68 % (42-75); PLATELET COUNT 205 10^3/uL (130-400); RED CELL DISTRIBUTION WIDTH 14.5 % (10.0-14.5); WHITE BLOOD COUNT 9.1 10^3/uL (4.3-11.0)
[2016-08-24 10:06] LABS: ALANINE AMINOTRANSFERASE 16 U/L (0-55); ALBUMIN 4.1 GM/DL (3.2-4.5); ANION GAP 7 MMOL/L (5-14); ASPARTATE AMINO TRANSFERASE 21 U/L (5-34); BILIRUBIN,TOTAL 0.5 MG/DL (0.1-1.0); BLOOD UREA NITROGEN 11 MG/DL (7-18); BUN/CREATININE RATIO 14 (0-20); CALCIUM 9.7 MG/DL (8.5-10.1); CARBON DIOXIDE 28 MMOL/L (21-32); CHLORIDE 104 MMOL/L (98-107); CREATININE SERUM 0.78 MG/DL (0.60-1.30); GFR ESTIMATED > 60; GLUCOSE 96 MG/DL (70-105); HEMOLYSIS 4 (-100-29); ICTERUS 0.4 (-100-1.9); LACTATE DEHYDROGENASE 215 U/L (125-220); LIPEMIA 2 (-100-49); MAGNESIUM 2.2 MG/DL (1.8-2.4); POTASSIUM 4.3 MMOL/L (3.6-5.0); SODIUM 139 MMOL/L (135-145); TOTAL PROTEIN 6.7 GM/DL (6.4-8.2)
[~2016-10-12] VITALS: Ht 193 cm; Wt 108.9 kg
[~2016-10-12 09:07] MED LIST changes: +ACETAMINOPHEN 500 MG TAB (TYLENOL) CANCER CTR PO PRN; +FOSAPREPITANT 150 MG/NS 150 MG IVPB (CANCER CTR) IV PRN; -FOSAPREPITANT 150 MG/NS 150 MG IVPB (CANCER CTR) IV SCH; -NS IV 1000 ML (CANCER CTR) 1,000 ML IV SCH; +NS IV 1000 ML (CANCER CTR) IV SCH; +NS IV 500 ML (CANCER CENTER) 500 ML IV SCH; +PALONOSETRON 0.25 MG, DEXAMETHASONE 10 MG/NS 50 ML IVPB IV PRN; +PALONOSETRON 0.25 MG/5 ML IV PRN; +riTUXimab 500 MG, riTUXimab FOR IV INJ CONC 200 MG in NS (IVPB) CANCER CENTER 163 ML IV SCH; -riTUXimab 500 MG, riTUXimab FOR IV INJ CONC 200 MG in NS (IVPB) CANCER CENTER ONLY 150 ML IV SCH
[2016-10-12 09:27] LABS: BASOPHILS % (AUTO) 1 % (0-10); EOSINOPHILS # (AUTO) 0.1 10^3/uL (0.0-0.3); EOSINOPHILS % (AUTO) 1 % (0-10); LYMPHOCYTES # (AUTO) 1.7 X 10^3 (1.0-4.0); LYMPHOCYTES % (AUTO) 19 % (12-44); MEAN CORPUSCULAR HEMOGLOBIN 29 PG (25-34); MEAN CORPUSCULAR HGB CONC 33 G/DL (32-36); MEAN CORPUSCULAR VOLUME 89 FL (80-99); MEAN PLATELET VOLUME 8.9 FL (7.4-10.4); MONOCYTES # (AUTO) 0.7 X 10^3 (0.0-1.0); MONOCYTES % (AUTO) 8 % (0-12); NEUTROPHILS # (AUTO) 6.3 X 10^3 (1.8-7.8); NEUTROPHILS % (AUTO) 72 % (42-75); PLATELET COUNT 318 10^3/uL (130-400); RED BLOOD COUNT 4.08 10^6/uL (4.35-5.85); RED CELL DISTRIBUTION WIDTH 16.1 % (10.0-14.5); WHITE BLOOD COUNT 8.8 10^3/uL (4.3-11.0)
[2016-10-12 09:51] LABS: ANION GAP 8 MMOL/L (5-14); BLOOD UREA NITROGEN 12 MG/DL (7-18); BUN/CREATININE RATIO 17; CALCIUM 9.4 MG/DL (8.5-10.1); CARBON DIOXIDE 29 MMOL/L (21-32); CHLORIDE 101 MMOL/L (98-107); CREATININE SERUM 0.72 MG/DL (0.60-1.30); GFR ESTIMATED > 60; GLUCOSE 75 MG/DL (70-105); SODIUM 138 MMOL/L (135-145)
== END 2016-11-22 | disposition home or self-care (01) ==
LOC: ONC 09:07
PROVIDERS: ATTEND Internal Medicine Hematology & Oncology
DX: F17.210 Nicotine dependence, cigarettes, uncomplicated; Z51.11 Encounter for antineoplastic chemotherapy; J44.9 Chronic obstructive pulmonary disease, unspecified; C82.05 Follicular lymphoma grade I, lymph nodes of inguinal region and lower limb; E78.00 Pure hypercholesterolemia, unspecified; D80.1 Nonfamilial hypogammaglobulinemia; I10 Essential (primary) hypertension; Z79.899 Other long term (current) drug therapy
CPT/HCPCS: 36591; 80048; 80053; 83615; 83735; 84550; 85025; 96367; 96375; 96413; 96417

== ENCOUNTER → 2016-10-18 | Outpatient (CLI) | payer BC, MEDICARE ==
[~2016-10-18] MED LIST changes: -ACETAMINOPHEN 500 MG TAB (TYLENOL) CANCER CTR PO PRN; -ACETAMINOPHEN 500 MG TAB (TYLENOL) CANCER CTR PO SCH; +BARIUM SUSPENSION 2.1% (VANILLA SILQ) 450 ML PO ONE; -CARBOPLATIN IV SCH; +CATHETER FLUSH 10 ML SYR IV PRN; -D5W IV SCH; -FAMOTIDINE 20MG/2ML IV (CANCER CTR) IV SCH; -FOSAPREPITANT 150 MG/NS 150 MG IVPB (CANCER CTR) IV PRN; -GEMCITABINE HCL (GENERIC) 2,000 MG in NS (IVPB) CANCER CENTER 100 ML IV SCH; +IOHEXOL 350 MG/ML 100 ML (OMNIPAQUE 350) VIAL IV ONE; +NS 100 ML (IVPB) BAG IV ONE; -NS IV 1000 ML (CANCER CTR) IV SCH; -NS IV 500 ML (CANCER CENTER) 500 ML IV SCH; -PALONOSETRON 0.25 MG, DEXAMETHASONE 10 MG/NS 50 ML IVPB IV PRN; -PALONOSETRON 0.25 MG, DEXAMETHASONE 10 MG/NS 50 ML IVPB IV SCH; -PALONOSETRON 0.25 MG/5 ML IV PRN; -diphenhydrAMINE 25 MG TAB (BENADRYL) CANCER CENTER PO SCH; -riTUXimab 500 MG, riTUXimab FOR IV INJ CONC 200 MG in NS (IVPB) CANCER CENTER 163 ML IV SCH
--- NOTE | 2016-10-18 12:09 | Diagnostic Imaging Report ---
PROCEDURE: CT chest with contrast, CT abdomen and pelvis with and without contrast. TECHNIQUE: Pre and post intravenous contrast axial imaging of the abdomen and pelvis and post contrast axial imaging of the chest were performed. INDICATION: Large cell non-Hodgkin's lymphoma. COMPARISON: The previous CT chest, abdomen and pelvis exam of 06/29/2016 noted a bulky infracarinal mediastinal mass with extension into the left hilum. These findings were felt to be related to the patient's diagnosis of large cell non-Hodgkin's lymphoma. FINDINGS: On this exam, the mediastinal and left hilar adenopathy has diminished significantly. On the prior study, the infracarinal mass measured 7.6 x 8.1 cm. On this exam, it measures only 4.7 x 5.1 cm. The 3.1 x 3.6 cm left hilar node seen previously has also decreased in size and now measures 1.4 x 1.5 cm. No new mediastinal or hilar adenopathy has developed. The lungs remain clear. There is no sign of failure, pneumonia or pleural effusion. Heart size is stable and within normal limits. Coronary artery calcifications are again noted. The aorta is not abnormally dilated. The pulmonary arteries were not fully opacified but there is no definite defect to suggest pulmonary embolus. The thyroid gland is unremarkable. The previous CT chest, abdomen and pelvis exam also noted a 4.5 x 5.5 cm jatinder mass in the right adnexa. That mass is not identified on this study. There is a coarse area of increased density in this region measuring 2.3 x 3.0 cm. This does suggest scar formation and it is possible that the previously described mass has been resected. Correlation with the patient's history would be recommended. No other abnormal adenopathy involving the abdomen or pelvis is noted. The areas of low density within the liver seen previously are again visualized and seems stable. Most likely these are cysts. The liver is otherwise unremarkable. The spleen, gallbladder, pancreas, adrenals, kidneys, aorta and inferior vena cava show no sign of an acute abnormality. The stomach is partially filled with oral contrast and consequently difficult to assess. There is no pelvic mass or free fluid collection noted. There are a few diverticula in the sigmoid colon but there is no sign of acute diverticulitis. The appendix was not well-visualized but there are no indirect signs of acute appendicitis. The urinary bladder is grossly unremarkable. The prostate gland is borderline enlarged. The bone windows show no evidence for fracture or for destructive lesion. IMPRESSION: 1. The appearance of the chest has improved since the prior exam as the infracarinal mass and the left hilar adenopathy seen previously have diminished. There is no new abnormality involving the thorax identified. 2. The mass in the right inguinal region is no longer evident. There is a poorly defined soft tissue density in this area which could be secondary to scar formation. Correlation with the patient's surgical history would be recommended. 3. There is no other mass or adenopathy involving the abdomen or pelvis. 4. The prostate gland is borderline enlarged. Dictated by: Dictated on workstation # [id number]
== END ==
LOC: RAD 09:36
PROVIDERS: ATTEND Internal Medicine Hematology & Oncology
DX: C82.59 Diffuse follicle center lymphoma, extranodal and solid organ sites (principal)
CPT/HCPCS: 71260; 74178

== ENCOUNTER 2016-10-26 09:53 | Outpatient (RCR) | payer BC, MEDICARE ==
[~2016-10-26] VITALS: Ht 193 cm; Wt 100.7 kg
[~2016-10-26 09:53] MED LIST changes: +ACETAMINOPHEN 500 MG TAB (TYLENOL) CANCER CTR PO SCH; -BARIUM SUSPENSION 2.1% (VANILLA SILQ) 450 ML PO ONE; +CARBOPLATIN IV SCH; -CATHETER FLUSH 10 ML SYR IV PRN; +D5W IV SCH; +FAMOTIDINE 20MG/2ML IV (CANCER CTR) IV SCH; +FOSAPREPITANT 150 MG/NS 150 MG IVPB (CANCER CTR) IV SCH; +GEMCITABINE HCL (GENERIC) 2,000 MG in NS (IVPB) CANCER CENTER 100 ML IV SCH; -IOHEXOL 350 MG/ML 100 ML (OMNIPAQUE 350) VIAL IV ONE; -NS 100 ML (IVPB) BAG IV ONE; +NS IV 1000 ML (CANCER CTR) 1,000 ML IV SCH; +PALONOSETRON 0.25 MG, DEXAMETHASONE 10 MG/NS 50 ML IVPB IV SCH; +diphenhydrAMINE 25 MG TAB (BENADRYL) CANCER CENTER PO SCH; +riTUXimab 500 MG, riTUXimab FOR IV INJ CONC 200 MG in NS (IVPB) CANCER CENTER ONLY 150 ML IV SCH
== END 2016-11-14 15:07 | disposition home or self-care (01) ==
LOC: PAR 09:53
PROVIDERS: ATTEND Internal Medicine Hematology & Oncology
DX: Z51.11 Encounter for antineoplastic chemotherapy (principal); C85.80 Other specified types of non-Hodgkin lymphoma, unspecified site
CPT/HCPCS: 96367; 96375; 96413; 96417; 99213

== ENCOUNTER 2016-11-23 11:06 | Outpatient (RCR) | payer BC, MEDICARE ==
[~2016-11-23 11:06] MED LIST changes: -ACETAMINOPHEN 500 MG TAB (TYLENOL) CANCER CTR PO SCH; -CARBOPLATIN IV SCH; -D5W IV SCH; -FAMOTIDINE 20MG/2ML IV (CANCER CTR) IV SCH; -FOSAPREPITANT 150 MG/NS 150 MG IVPB (CANCER CTR) IV SCH; -GEMCITABINE HCL (GENERIC) 2,000 MG in NS (IVPB) CANCER CENTER 100 ML IV SCH; -NS IV 1000 ML (CANCER CTR) 1,000 ML IV SCH; -PALONOSETRON 0.25 MG, DEXAMETHASONE 10 MG/NS 50 ML IVPB IV SCH; -diphenhydrAMINE 25 MG TAB (BENADRYL) CANCER CENTER PO SCH; -riTUXimab 500 MG, riTUXimab FOR IV INJ CONC 200 MG in NS (IVPB) CANCER CENTER ONLY 150 ML IV SCH
[2016-11-23 11:09] LABS: BASOPHILS # (AUTO) 0.1 10^3/uL (0.0-0.1); BASOPHILS % (AUTO) 1 % (0-10); EOSINOPHILS # (AUTO) 0.5 10^3/uL (0.0-0.3); EOSINOPHILS % (AUTO) 5 % (0-10); LYMPHOCYTES # (AUTO) 1.7 X 10^3 (1.0-4.0); LYMPHOCYTES % (AUTO) 17 % (12-44); MEAN CORPUSCULAR HEMOGLOBIN 28 PG (25-34); MEAN CORPUSCULAR HGB CONC 31 G/DL (32-36); MEAN CORPUSCULAR VOLUME 91 FL (80-99); MEAN PLATELET VOLUME 9.5 FL (7.4-10.4); MONOCYTES # (AUTO) 1.3 X 10^3 (0.0-1.0); MONOCYTES % (AUTO) 13 % (0-12); NEUTROPHILS # (AUTO) 6.4 X 10^3 (1.8-7.8); NEUTROPHILS % (AUTO) 65 % (42-75); PLATELET COUNT 269 10^3/uL (130-400); RED CELL DISTRIBUTION WIDTH 18.6 % (10.0-14.5)
[2016-11-23] MEDS ORDERED: diphenhydrAMINE 25 MG TAB (BENADRYL) CANCER CENTER PO ONE (11:39)
[2016-11-23] MEDS ORDERED: ACETAMINOPHEN 500 MG TAB (TYLENOL) CANCER CTR ONE (11:39)
[2016-11-23 11:40] LABS: ALANINE AMINOTRANSFERASE 84 U/L (0-55); ALBUMIN 3.5 GM/DL (3.2-4.5); ANION GAP 8 MMOL/L (5-14); ASPARTATE AMINO TRANSFERASE 46 U/L (5-34); BILIRUBIN,TOTAL 0.3 MG/DL (0.1-1.0); BLOOD UREA NITROGEN 15 MG/DL (7-18); BUN/CREATININE RATIO 21; CALCIUM 9.2 MG/DL (8.5-10.1); CARBON DIOXIDE 27 MMOL/L (21-32); CHLORIDE 102 MMOL/L (98-107); CREATININE SERUM 0.72 MG/DL (0.60-1.30); GFR ESTIMATED > 60; GLUCOSE 93 MG/DL (70-105); POTASSIUM 4.1 MMOL/L (3.6-5.0); SODIUM 137 MMOL/L (135-145); TOTAL PROTEIN 5.8 GM/DL (6.4-8.2)
[2016-11-23] MEDS ORDERED: IVIG 20 GM (PRIVIGEN) CANCER C 200 ML IV SCH (12:00)
[2016-11-23] MEDS ORDERED: diphenhydrAMINE 25 MG TAB (BENADRYL) CANCER CENTER PO SCH (12:00)
[2016-11-23] MEDS ORDERED: ACETAMINOPHEN 500 MG TAB (TYLENOL) CANCER CTR PO PRN (12:00)
== END 2016-12-02 | disposition home or self-care (01) ==
LOC: ONC 11:06
PROVIDERS: ATTEND Internal Medicine Hematology & Oncology
DX: C82.05 Follicular lymphoma grade I, lymph nodes of inguinal region and lower limb (principal); D80.1 Nonfamilial hypogammaglobulinemia; I10 Essential (primary) hypertension; E78.00 Pure hypercholesterolemia, unspecified; J44.9 Chronic obstructive pulmonary disease, unspecified; F17.210 Nicotine dependence, cigarettes, uncomplicated; Z79.899 Other long term (current) drug therapy
CPT/HCPCS: 36591; 80053; 85025; 96365; 96366

== ENCOUNTER → 2017-02-01 | Outpatient (CLI) | payer BC, MEDICARE ==
[~2017-02-01] MED LIST changes: +BARIUM SUSPENSION 2.1% (VANILLA SILQ) 450 ML PO ONE; +CATHETER FLUSH 10 ML SYR IV PRN; +IOHEXOL 350 MG/ML 100 ML (OMNIPAQUE 350) VIAL IV ONE; +NS 100 ML (IVPB) BAG IV ONE
--- NOTE | 2017-02-01 13:02 | Diagnostic Imaging Report ---
PROCEDURE: CT chest with contrast, CT abdomen and pelvis with and without contrast. TECHNIQUE: Pre and post intravenous contrast axial imaging of the abdomen and pelvis and post contrast axial imaging of the chest were performed. INDICATION: Non-Hodgkin's lymphoma. 100 mL of Omnipaque 350 is administered intravenously. COMPARISON: 10/18/16. FINDINGS: CT chest: There is an infracarinal mass measuring 4.4 x 3.7 cm compared to 5.1 x 4.7 cm on the previous exam. It is craniocaudally 3.7 cm compared to 5.7 cm on the previous study. The adjacent esophagus is inseparable from this mass and demonstrates mild nonspecific wall thickening. There is soft tissue thickening around the left mainstem bronchus. Previously seen left hilar lymph node is smaller compared to the prior study now measuring 1 cm. No other areas of lymphadenopathy in the chest seen. No axillary lymphadenopathy. The thoracic aorta is normal in caliber. The heart size is normal. No pleural or pericardial effusion. The lungs demonstrate no significant consolidation. There is mild upper lobe predominant emphysema. The osseous structures demonstrate compression fractures at multiple levels in the thoracic spine which are likely to be osteoporotic with no definite underlying sclerotic or lytic mass seen. Findings are similar to 10/18/[address] abdomen and pelvis: Hypodense lesions in the left hepatic lobe and caudate lobe of the liver similar to previous study are again noted up to 1.6 cm in size are likely related to simple cysts. No calcified gallstones. The spleen is not enlarged. The pancreas and adrenal glands appear unremarkable. There is fatty stranding seen in the small bowel mesentery. No significant lymphadenopathy, however, is seen. No para-aortic significantly enlarged lymph nodes are noted. The kidneys have symmetric enhancement and contrast excretion. There is no hydronephrosis. The unenhanced phase demonstrates no stones. No significant free fluid or fluid collection in the abdomen or pelvis is seen. The prostate is enlarged measuring 5.6 cm in transverse dimension. Nonspecific mild thickening in the anterior aspect of the urinary bladder is seen, improved from the previous exam. Focal area of soft tissue thickening in the right inguinal region is again noted measuring 2.6 x 1.6 cm presumably related to scarring. It is minimally smaller compared to the previous exam measurement of 3.1 x 2.3 cm. The osseous structures demonstrate suggestion of osteopenia with chronic compression fractures of L1 and L4 levels. IMPRESSION: CT chest: The 4.3 cm infracarinal mass is decreased in size compared to 10/18/2016 exam. Also, the previously seen left hilar lymph node is improved, now borderline in size up to [address] abdomen and pelvis: 1. Nonspecific slight stranding in the mesentery of the small bowel with no discrete mass or lymphadenopathy. Followup exams recommended. 2. Decreased soft tissue density in the right groin probably related to scarring. Dictated by: Dictated on workstation # [id number]
== END ==
LOC: RAD 09:28
PROVIDERS: ATTEND Internal Medicine Hematology & Oncology
DX: C82.59 Diffuse follicle center lymphoma, extranodal and solid organ sites (principal); D80.1 Nonfamilial hypogammaglobulinemia
CPT/HCPCS: 71260; 74178

== ENCOUNTER 2017-03-01 14:08 | Outpatient (RCR) | payer OTHER, MEDICARE ==
[2016-12-21 09:11] LABS: BASOPHILS # (AUTO) 0.1 10^3/uL (0.0-0.1); BASOPHILS % (AUTO) 1 % (0-10); EOSINOPHILS # (AUTO) 0.3 10^3/uL (0.0-0.3); EOSINOPHILS % (AUTO) 4 % (0-10); HEMATOCRIT 39 % (40-54); HEMOGLOBIN 12.5 G/DL (13.3-17.7); LYMPHOCYTES # (AUTO) 1.4 X 10^3 (1.0-4.0); LYMPHOCYTES % (AUTO) 24 % (12-44); MEAN CORPUSCULAR HEMOGLOBIN 29 PG (25-34); MEAN CORPUSCULAR HGB CONC 32 G/DL (32-36); MEAN CORPUSCULAR VOLUME 90 FL (80-99); MEAN PLATELET VOLUME 10.6 FL (7.4-10.4); MONOCYTES # (AUTO) 0.8 X 10^3 (0.0-1.0); MONOCYTES % (AUTO) 13 % (0-12); NEUTROPHILS # (AUTO) 3.4 X 10^3 (1.8-7.8); NEUTROPHILS % (AUTO) 58 % (42-75); PLATELET COUNT 238 10^3/uL (130-400); RED BLOOD COUNT 4.38 10^6/uL (4.35-5.85); RED CELL DISTRIBUTION WIDTH 17.4 % (10.0-14.5); WHITE BLOOD COUNT 5.9 10^3/uL (4.3-11.0)
[2016-12-21 09:30] LABS: ALANINE AMINOTRANSFERASE 19 U/L (0-55); ALKALINE PHOSPHATASE 98 U/L (40-136); BILIRUBIN,TOTAL 0.4 MG/DL (0.1-1.0); BUN/CREATININE RATIO 14; CALCIUM 9.2 MG/DL (8.5-10.1); CARBON DIOXIDE 26 MMOL/L (21-32); CHLORIDE 106 MMOL/L (98-107); CREATININE SERUM 0.73 MG/DL (0.60-1.30); GFR ESTIMATED > 60; GLUCOSE 85 MG/DL (70-105); POTASSIUM 3.9 MMOL/L (3.6-5.0); SODIUM 139 MMOL/L (135-145); TOTAL PROTEIN 6.6 GM/DL (6.4-8.2)
[2017-01-18 09:25] LABS: BASOPHILS # (AUTO) 0.1 10^3/uL (0.0-0.1); BASOPHILS % (AUTO) 1 % (0-10); EOSINOPHILS # (AUTO) 0.2 10^3/uL (0.0-0.3); EOSINOPHILS % (AUTO) 3 % (0-10); HEMATOCRIT 41 % (40-54); HEMOGLOBIN 13.6 G/DL (13.3-17.7); LYMPHOCYTES # (AUTO) 1.5 X 10^3 (1.0-4.0); LYMPHOCYTES % (AUTO) 22 % (12-44); MEAN CORPUSCULAR HEMOGLOBIN 29 PG (25-34); MEAN CORPUSCULAR HGB CONC 33 G/DL (32-36); MEAN CORPUSCULAR VOLUME 88 FL (80-99); MEAN PLATELET VOLUME 10.2 FL (7.4-10.4); MONOCYTES # (AUTO) 0.8 X 10^3 (0.0-1.0); MONOCYTES % (AUTO) 12 % (0-12); NEUTROPHILS # (AUTO) 4.3 X 10^3 (1.8-7.8); NEUTROPHILS % (AUTO) 62 % (42-75); PLATELET COUNT 242 10^3/uL (130-400); RED BLOOD COUNT 4.69 10^6/uL (4.35-5.85); RED CELL DISTRIBUTION WIDTH 16.2 % (10.0-14.5); WHITE BLOOD COUNT 6.8 10^3/uL (4.3-11.0)
[2017-01-18 09:47] LABS: ALANINE AMINOTRANSFERASE 17 U/L (0-55); ALBUMIN 3.9 GM/DL (3.2-4.5); ALKALINE PHOSPHATASE 96 U/L (40-136); BILIRUBIN,TOTAL 0.4 MG/DL (0.1-1.0); BUN/CREATININE RATIO 21; CALCIUM 9.3 MG/DL (8.5-10.1); CARBON DIOXIDE 24 MMOL/L (21-32); CHLORIDE 109 MMOL/L (98-107); GFR ESTIMATED > 60; GLUCOSE 89 MG/DL (70-105); SODIUM 142 MMOL/L (135-145); TOTAL PROTEIN 6.4 GM/DL (6.4-8.2)
[2017-01-24 13:32] LABS: BASOPHILS % (AUTO) 0 % (0-10); EOSINOPHILS % (AUTO) 0 % (0-10); HEMATOCRIT 42 % (40-54); HEMOGLOBIN 14.4 G/DL (13.3-17.7); LYMPHOCYTES # (AUTO) 0.7 X 10^3 (1.0-4.0); LYMPHOCYTES % (AUTO) 14 % (12-44); MEAN CORPUSCULAR HEMOGLOBIN 30 PG (25-34); MEAN CORPUSCULAR HGB CONC 35 G/DL (32-36); MEAN CORPUSCULAR VOLUME 86 FL (80-99); MONOCYTES % (AUTO) 1 % (0-12); NEUTROPHILS # (AUTO) 4.5 X 10^3 (1.8-7.8); NEUTROPHILS % (AUTO) 86 % (42-75); PLATELET COUNT 170 10^3/uL (130-400); RED BLOOD COUNT 4.85 10^6/uL (4.35-5.85); RED CELL DISTRIBUTION WIDTH 15.5 % (10.0-14.5); WHITE BLOOD COUNT 5.3 10^3/uL (4.3-11.0)
[2017-01-24 13:50] LABS: BUN/CREATININE RATIO 26; CALCIUM 9.3 MG/DL (8.5-10.1); CARBON DIOXIDE 24 MMOL/L (21-32); CHLORIDE 104 MMOL/L (98-107); CREATININE SERUM 0.82 MG/DL (0.60-1.30); GFR ESTIMATED > 60; GLUCOSE 127 MG/DL (70-105); POTASSIUM 4.7 MMOL/L (3.6-5.0); SODIUM 139 MMOL/L (135-145)
[2017-02-08 09:29] LABS: BASOPHILS % (AUTO) 1 % (0-10); EOSINOPHILS % (AUTO) 0 % (0-10); HEMATOCRIT 41 % (40-54); HEMOGLOBIN 13.8 G/DL (13.3-17.7); LYMPHOCYTES # (AUTO) 2.1 X 10^3 (1.0-4.0); LYMPHOCYTES % (AUTO) 45 % (12-44); MEAN CORPUSCULAR HEMOGLOBIN 29 PG (25-34); MEAN CORPUSCULAR HGB CONC 33 G/DL (32-36); MEAN CORPUSCULAR VOLUME 88 FL (80-99); MEAN PLATELET VOLUME 9.8 FL (7.4-10.4); MONOCYTES # (AUTO) 0.3 X 10^3 (0.0-1.0); MONOCYTES % (AUTO) 7 % (0-12); NEUTROPHILS # (AUTO) 2.2 X 10^3 (1.8-7.8); NEUTROPHILS % (AUTO) 48 % (42-75); PLATELET COUNT 317 10^3/uL (130-400); RED BLOOD COUNT 4.69 10^6/uL (4.35-5.85); RED CELL DISTRIBUTION WIDTH 16.1 % (10.0-14.5); WHITE BLOOD COUNT 4.6 10^3/uL (4.3-11.0)
[2017-02-08 09:46] LABS: ALANINE AMINOTRANSFERASE 28 U/L (0-55); ALBUMIN 4.1 GM/DL (3.2-4.5); ALKALINE PHOSPHATASE 128 U/L (40-136); BILIRUBIN,TOTAL 0.2 MG/DL (0.1-1.0); BUN/CREATININE RATIO 18; CALCIUM 9.9 MG/DL (8.5-10.1); CARBON DIOXIDE 24 MMOL/L (21-32); CHLORIDE 106 MMOL/L (98-107); CREATININE SERUM 0.73 MG/DL (0.60-1.30); GFR ESTIMATED > 60; GLUCOSE 121 MG/DL (70-105); SODIUM 139 MMOL/L (135-145); TOTAL PROTEIN 7.4 GM/DL (6.4-8.2)
[2017-02-15 09:18] LABS: BASOPHILS # (AUTO) 0.1 10^3/uL (0.0-0.1); BASOPHILS % (AUTO) 1 % (0-10); EOSINOPHILS # (AUTO) 0.1 10^3/uL (0.0-0.3); EOSINOPHILS % (AUTO) 1 % (0-10); HEMATOCRIT 41 % (40-54); HEMOGLOBIN 13.6 G/DL (13.3-17.7); LYMPHOCYTES # (AUTO) 2.5 X 10^3 (1.0-4.0); LYMPHOCYTES % (AUTO) 34 % (12-44); MEAN CORPUSCULAR HEMOGLOBIN 29 PG (25-34); MEAN CORPUSCULAR HGB CONC 33 G/DL (32-36); MEAN CORPUSCULAR VOLUME 87 FL (80-99); MEAN PLATELET VOLUME 10.1 FL (7.4-10.4); MONOCYTES # (AUTO) 1.4 X 10^3 (0.0-1.0); MONOCYTES % (AUTO) 19 % (0-12); NEUTROPHILS # (AUTO) 3.4 X 10^3 (1.8-7.8); NEUTROPHILS % (AUTO) 45 % (42-75); PLATELET COUNT 265 10^3/uL (130-400); RED BLOOD COUNT 4.68 10^6/uL (4.35-5.85); RED CELL DISTRIBUTION WIDTH 16.4 % (10.0-14.5); WHITE BLOOD COUNT 7.4 10^3/uL (4.3-11.0)
[2017-02-15 09:37] LABS: ALANINE AMINOTRANSFERASE 23 U/L (0-55); ALBUMIN 3.9 GM/DL (3.2-4.5); ALKALINE PHOSPHATASE 109 U/L (40-136); BILIRUBIN,TOTAL 0.2 MG/DL (0.1-1.0); BUN/CREATININE RATIO 20; CALCIUM 9.2 MG/DL (8.5-10.1); CARBON DIOXIDE 23 MMOL/L (21-32); CHLORIDE 105 MMOL/L (98-107); CREATININE SERUM 0.79 MG/DL (0.60-1.30); GFR ESTIMATED > 60; GLUCOSE 97 MG/DL (70-105); POTASSIUM 4.1 MMOL/L (3.6-5.0); SODIUM 137 MMOL/L (135-145)
[2017-02-22 12:51] LABS: BASOPHILS # (AUTO) 0.1 10^3/uL (0.0-0.1); BASOPHILS % (AUTO) 0 % (0-10); EOSINOPHILS % (AUTO) 0 % (0-10); HEMATOCRIT 42 % (40-54); HEMOGLOBIN 14.4 G/DL (13.3-17.7); LYMPHOCYTES # (AUTO) 2.8 X 10^3 (1.0-4.0); LYMPHOCYTES % (AUTO) 16 % (12-44); MEAN CORPUSCULAR HEMOGLOBIN 30 PG (25-34); MEAN CORPUSCULAR HGB CONC 35 G/DL (32-36); MEAN CORPUSCULAR VOLUME 85 FL (80-99); MEAN PLATELET VOLUME 10.3 FL (7.4-10.4); MONOCYTES # (AUTO) 0.2 X 10^3 (0.0-1.0); MONOCYTES % (AUTO) 1 % (0-12); NEUTROPHILS # (AUTO) 13.9 X 10^3 (1.8-7.8); NEUTROPHILS % (AUTO) 82 % (42-75); PLATELET COUNT 134 10^3/uL (130-400); RED BLOOD COUNT 4.86 10^6/uL (4.35-5.85)
[2017-02-22 13:08] LABS: BUN/CREATININE RATIO 28; CALCIUM 9.3 MG/DL (8.5-10.1); CARBON DIOXIDE 24 MMOL/L (21-32); CHLORIDE 103 MMOL/L (98-107); CREATININE SERUM 0.76 MG/DL (0.60-1.30); GFR ESTIMATED > 60; GLUCOSE 133 MG/DL (70-105); POTASSIUM 4.6 MMOL/L (3.6-5.0); SODIUM 139 MMOL/L (135-145)
[~2017-03-01] VITALS: Ht 193 cm; Wt 104.8 kg
[~2017-03-01 14:08] MED LIST changes: +ACETAMINOPHEN 500 MG TAB (TYLENOL) CANCER CTR PO PRN; -BARIUM SUSPENSION 2.1% (VANILLA SILQ) 450 ML PO ONE; +CARBOPLATIN IV SCH; -CATHETER FLUSH 10 ML SYR IV PRN; +D5W IV SCH; +FAMOTIDINE 20MG/2ML IV (CANCER CTR) IV SCH; +FOSAPREPITANT DIMEGLUMINE 150 MG in NS (IVPB) CANCER CENTER ONLY 150 ML IV SCH; +GEMCITABINE HCL (GENERIC) 2,000 MG in NS (IVPB) CANCER CENTER 100 ML IV SCH; -IOHEXOL 350 MG/ML 100 ML (OMNIPAQUE 350) VIAL IV ONE; +IVIG 20 GM (PRIVIGEN) CANCER C 200 ML IV SCH; -NS 100 ML (IVPB) BAG IV ONE; +NS IV 500 ML (CANCER CENTER) 500 ML ONE; +NS IV 500 ML (CANCER CENTER) IV SCH; +PALONOSETRON 0.25 MG, DEXAMETHASONE 10 MG/NS 50 ML IVPB IV PRN; +diphenhydrAMINE 25 MG TAB (BENADRYL) CANCER CENTER PO SCH; +riTUXimab 500 MG, riTUXimab FOR IV INJ CONC 200 MG in NS (IVPB) CANCER CENTER ONLY 150 ML IV SCH
== END 2017-03-15 10:27 | disposition home or self-care (01) ==
LOC: ONC 14:08
PROVIDERS: ATTEND Internal Medicine Hematology & Oncology
DX: C82.05 Follicular lymphoma grade I, lymph nodes of inguinal region and lower limb (principal); D80.1 Nonfamilial hypogammaglobulinemia; I10 Essential (primary) hypertension; E78.00 Pure hypercholesterolemia, unspecified; J44.9 Chronic obstructive pulmonary disease, unspecified; F17.210 Nicotine dependence, cigarettes, uncomplicated; Z79.899 Other long term (current) drug therapy
CPT/HCPCS: 36415; 36591; 80048; 80053; 83615; 85025; 96365; 96366; 96367; 96375; 96413; 96417

== ENCOUNTER → 2017-03-29 | Outpatient (CLI) | payer OTHER, MEDICARE ==
[~2017-03-29] MED LIST changes: -ACETAMINOPHEN 500 MG TAB (TYLENOL) CANCER CTR PO PRN; -CARBOPLATIN IV SCH; -D5W IV SCH; -FAMOTIDINE 20MG/2ML IV (CANCER CTR) IV SCH; -FOSAPREPITANT DIMEGLUMINE 150 MG in NS (IVPB) CANCER CENTER ONLY 150 ML IV SCH; -GEMCITABINE HCL (GENERIC) 2,000 MG in NS (IVPB) CANCER CENTER 100 ML IV SCH; -IVIG 20 GM (PRIVIGEN) CANCER C 200 ML IV SCH; -NS IV 500 ML (CANCER CENTER) 500 ML ONE; -NS IV 500 ML (CANCER CENTER) IV SCH; -PALONOSETRON 0.25 MG, DEXAMETHASONE 10 MG/NS 50 ML IVPB IV PRN; -diphenhydrAMINE 25 MG TAB (BENADRYL) CANCER CENTER PO SCH; -riTUXimab 500 MG, riTUXimab FOR IV INJ CONC 200 MG in NS (IVPB) CANCER CENTER ONLY 150 ML IV SCH
[2017-03-29] MEDS: IOHEXOL 350 MG/ML 100 ML (OMNIPAQUE 350) VIAL IV ONE (09:05)
[2017-03-29] MEDS: NS 100 ML (IVPB) BAG IV ONE (09:06)
[2017-03-29] MEDS: BARIUM SUSPENSION 2.1% (VANILLA SILQ) 450 ML PO ONE (09:06)
[2017-03-29] MEDS: CATHETER FLUSH 10 ML SYR IV PRN (09:06)
--- NOTE | 2017-03-29 10:44 | Diagnostic Imaging Report ---
PROCEDURE: CT chest with contrast, CT abdomen and pelvis with and without contrast. TECHNIQUE: Pre and post intravenous contrast axial imaging of the abdomen and pelvis and post contrast axial imaging of the chest were performed. INDICATION: Lymphoma, followup. COMPARISON: Correlation is made with prior CT from 02/01/2017. FINDINGS: CT chest: No axillary lymphadenopathy is detected. No hilar lymphadenopathy is detected. The previously noted infrahilar mass appears to be very similar when compared with prior study measuring approximately 4.4 cm AP x 4.0 cm transverse compared with 4.4 cm AP x 3.7 cm transverse. Again this is inseparable from the esophagus. Soft tissue thickening surrounding the left mainstem bronchus is again noted. No paracardial effusion is detected. There does appear to be trace left pleural fluid present. No parenchymal consolidation is seen. No nodules are detected. No masses are detected. IMPRESSION: Overall stable CT of the chest when compared with exam from 02/01/2017. Infrahilar mass is without significant change. There does appear to be trace left effusion on today's study. CT abdomen and pelvis: Well-defined low densities in the left lobe of liver and caudate appear stable and most consistent with cysts. No new liver mass is identified. The gallbladder is unremarkable. The pancreas and spleen are unremarkable. No adrenal mass is identified. Kidneys are unremarkable. Aorta is calcified but nonaneurysmal. No central retroperitoneal lymphadenopathy is seen. There is some continued stranding near the root of the mesentery but no definite mesenteric lymphadenopathy is seen. The small and large bowel loops are of normal caliber. There is no ascites. The bladder and prostate are stable. No definite inguinal or iliac lymphadenopathy is seen. IMPRESSION: Stable CT of the abdomen and pelvis when compared with exam from 02/01/2017. Dictated by: Dictated on workstation # [id number]
== END ==
LOC: RAD 08:51
PROVIDERS: ATTEND Internal Medicine Hematology & Oncology
DX: Z08 Encounter for follow-up examination after completed treatment for malignant neoplasm (principal); R91.8 Other nonspecific abnormal finding of lung field; Z85.72 Personal history of non-Hodgkin lymphomas
CPT/HCPCS: 71260; 74178

== ENCOUNTER → 2017-05-02 | Outpatient (CLI) | payer OTHER, MEDICARE ==
[~2017-05-02] MED LIST changes: +RT-ALBUTEROL SULF 2.5 MG/3 ML PRE-MIX VIAL INH ONE
== END ==
LOC: RT 13:45
PROVIDERS: ATTEND Internal Medicine Hematology & Oncology
DX: C82.59 Diffuse follicle center lymphoma, extranodal and solid organ sites (principal)
CPT/HCPCS: 94060; 94726; 94729

== ENCOUNTER → 2017-05-08 | Outpatient (CLI) | payer OTHER, MEDICARE ==
[~2017-05-08] MED LIST changes: -RT-ALBUTEROL SULF 2.5 MG/3 ML PRE-MIX VIAL INH ONE
--- NOTE | 2017-05-08 17:06 | Diagnostic Imaging Report ---
INDICATION: Non-Hodgkin's lymphoma. COMPARISON: Comparison is made with prior PET/CT from 08/05/2013. TECHNIQUE: Serum blood glucose level at the time of injection was 101 mg/dL. The patient was administered 13.2 mCi of F-18 FDG administered in the right antecubital location. PET imaging was performed from the top of the head to the mid thighs. A noncontrast CT imaging was performed for anatomic correlation and attenuation correction. FINDINGS: There is normal symmetric uptake of activity within the brain. Neck soft tissues are unremarkable. No hypermetabolism is seen. Imaging through the chest demonstrates physiologic activity within the left ventricular myocardium. No hilar or mediastinal hypermetabolism is seen. Axillae are unremarkable. Physiologic activity within liver and spleen as well as the GI and genitourinary tracts is identified. No suspicious hypermetabolism is seen. There is physiologic activity within the bladder. IMPRESSION: Stable PET/CT when compared with prior examination from 08/05/2013. No suspicious region of hypermetabolism is seen to suggest a recurrent lymphoma or neoplasm. Dictated by: Dictated on workstation # [id number]
== END ==
LOC: RAD 09:05
PROVIDERS: ATTEND Internal Medicine Hematology & Oncology
DX: C82.59 Diffuse follicle center lymphoma, extranodal and solid organ sites (principal)

== ENCOUNTER 2017-06-07 12:14 | Outpatient (RCR) | payer OTHER, MEDICARE ==
[2017-03-15 10:10] LABS: BASOPHILS % (AUTO) 0 % (0-10); EOSINOPHILS % (AUTO) 0 % (0-10); HEMATOCRIT 39 % (40-54); HEMOGLOBIN 13.3 G/DL (13.3-17.7); LYMPHOCYTES # (AUTO) 3.2 X 10^3 (1.0-4.0); LYMPHOCYTES % (AUTO) 22 % (12-44); MEAN CORPUSCULAR HEMOGLOBIN 30 PG (25-34); MEAN CORPUSCULAR HGB CONC 34 G/DL (32-36); MEAN CORPUSCULAR VOLUME 88 FL (80-99); MEAN PLATELET VOLUME 10.3 FL (7.4-10.4); MONOCYTES # (AUTO) 0.8 X 10^3 (0.0-1.0); MONOCYTES % (AUTO) 6 % (0-12); NEUTROPHILS # (AUTO) 10.7 X 10^3 (1.8-7.8); NEUTROPHILS % (AUTO) 73 % (42-75); PLATELET COUNT 290 10^3/uL (130-400); RED BLOOD COUNT 4.46 10^6/uL (4.35-5.85); RED CELL DISTRIBUTION WIDTH 17.7 % (10.0-14.5); WHITE BLOOD COUNT 14.7 10^3/uL (4.3-11.0)
[2017-03-15 10:32] LABS: ALANINE AMINOTRANSFERASE 31 U/L (0-55); ALBUMIN 3.8 GM/DL (3.2-4.5); ALKALINE PHOSPHATASE 100 U/L (40-136); BILIRUBIN,TOTAL 0.3 MG/DL (0.1-1.0); BUN/CREATININE RATIO 15; CALCIUM 9.4 MG/DL (8.5-10.1); CARBON DIOXIDE 22 MMOL/L (21-32); CHLORIDE 107 MMOL/L (98-107); CREATININE SERUM 0.75 MG/DL (0.60-1.30); GFR ESTIMATED > 60; GLUCOSE 159 MG/DL (70-105); POTASSIUM 3.8 MMOL/L (3.6-5.0); SODIUM 140 MMOL/L (135-145); TOTAL PROTEIN 6.9 GM/DL (6.4-8.2)
[2017-03-22 10:08] LABS: BASOPHILS % (AUTO) 0 % (0-10); EOSINOPHILS % (AUTO) 0 % (0-10); HEMATOCRIT 36 % (40-54); HEMOGLOBIN 12.2 G/DL (13.3-17.7); LYMPHOCYTES % (AUTO) 21 % (12-44); MEAN CORPUSCULAR HEMOGLOBIN 30 PG (25-34); MEAN CORPUSCULAR HGB CONC 34 G/DL (32-36); MEAN CORPUSCULAR VOLUME 88 FL (80-99); MONOCYTES # (AUTO) 0.3 X 10^3 (0.0-1.0); MONOCYTES % (AUTO) 4 % (0-12); NEUTROPHILS # (AUTO) 7.1 X 10^3 (1.8-7.8); NEUTROPHILS % (AUTO) 75 % (42-75); PLATELET COUNT 158 10^3/uL (130-400); RED CELL DISTRIBUTION WIDTH 16.9 % (10.0-14.5); WHITE BLOOD COUNT 9.5 10^3/uL (4.3-11.0)
[2017-03-22 10:33] LABS: ALANINE AMINOTRANSFERASE 58 U/L (0-55); ALBUMIN 3.5 GM/DL (3.2-4.5); ALKALINE PHOSPHATASE 94 U/L (40-136); BILIRUBIN,TOTAL 0.3 MG/DL (0.1-1.0); BUN/CREATININE RATIO 22; CALCIUM 8.6 MG/DL (8.5-10.1); CARBON DIOXIDE 23 MMOL/L (21-32); CHLORIDE 106 MMOL/L (98-107); CREATININE SERUM 0.86 MG/DL (0.60-1.30); GFR ESTIMATED > 60; GLUCOSE 113 MG/DL (70-105); POTASSIUM 3.4 MMOL/L (3.6-5.0); SODIUM 141 MMOL/L (135-145); TOTAL PROTEIN 5.9 GM/DL (6.4-8.2)
[2017-03-29 10:29] LABS: BASOPHILS # (AUTO) 0.1 10^3/uL (0.0-0.1); BASOPHILS % (AUTO) 1 % (0-10); EOSINOPHILS % (AUTO) 0 % (0-10); HEMATOCRIT 38 % (40-54); HEMOGLOBIN 13.1 G/DL (13.3-17.7); LYMPHOCYTES # (AUTO) 2.7 X 10^3 (1.0-4.0); LYMPHOCYTES % (AUTO) 23 % (12-44); MEAN CORPUSCULAR HEMOGLOBIN 30 PG (25-34); MEAN CORPUSCULAR HGB CONC 35 G/DL (32-36); MEAN CORPUSCULAR VOLUME 87 FL (80-99); MEAN PLATELET VOLUME 8.8 FL (7.4-10.4); MONOCYTES # (AUTO) 0.3 X 10^3 (0.0-1.0); MONOCYTES % (AUTO) 2 % (0-12); NEUTROPHILS # (AUTO) 8.8 X 10^3 (1.8-7.8); NEUTROPHILS % (AUTO) 74 % (42-75); PLATELET COUNT 42 10^3/uL (130-400); RED BLOOD COUNT 4.36 10^6/uL (4.35-5.85); RED CELL DISTRIBUTION WIDTH 18.2 % (10.0-14.5); WHITE BLOOD COUNT 11.8 10^3/uL (4.3-11.0)
[2017-03-29 10:42] LABS: BUN/CREATININE RATIO 23; CALCIUM 8.3 MG/DL (8.5-10.1); CARBON DIOXIDE 24 MMOL/L (21-32); CHLORIDE 103 MMOL/L (98-107); CREATININE SERUM 0.73 MG/DL (0.60-1.30); GFR ESTIMATED > 60; GLUCOSE 121 MG/DL (70-105); POTASSIUM 3.7 MMOL/L (3.6-5.0); SODIUM 140 MMOL/L (135-145)
[2017-04-13 08:31] LABS: BASOPHILS % (AUTO) 0 % (0-10); EOSINOPHILS % (AUTO) 0 % (0-10); HEMATOCRIT 31 % (40-54); HEMOGLOBIN 10.5 G/DL (13.3-17.7); LYMPHOCYTES # (AUTO) 1.1 X 10^3 (1.0-4.0); LYMPHOCYTES % (AUTO) 15 % (12-44); MEAN CORPUSCULAR HEMOGLOBIN 30 PG (25-34); MEAN CORPUSCULAR HGB CONC 33 G/DL (32-36); MEAN CORPUSCULAR VOLUME 90 FL (80-99); MEAN PLATELET VOLUME 9.8 FL (7.4-10.4); MONOCYTES # (AUTO) 1.2 X 10^3 (0.0-1.0); MONOCYTES % (AUTO) 16 % (0-12); NEUTROPHILS % (AUTO) 68 % (42-75); PLATELET COUNT 372 10^3/uL (130-400); RED BLOOD COUNT 3.48 10^6/uL (4.35-5.85); RED CELL DISTRIBUTION WIDTH 19.2 % (10.0-14.5); WHITE BLOOD COUNT 7.3 10^3/uL (4.3-11.0)
[2017-04-13 08:48] LABS: ALANINE AMINOTRANSFERASE 22 U/L (0-55); ALBUMIN 3.2 GM/DL (3.2-4.5); ALKALINE PHOSPHATASE 88 U/L (40-136); BILIRUBIN,TOTAL 0.6 MG/DL (0.1-1.0); BUN/CREATININE RATIO 12; CALCIUM 8.5 MG/DL (8.5-10.1); CARBON DIOXIDE 24 MMOL/L (21-32); CHLORIDE 104 MMOL/L (98-107); CREATININE SERUM 0.69 MG/DL (0.60-1.30); GFR ESTIMATED > 60; GLUCOSE 104 MG/DL (70-105); POTASSIUM 3.4 MMOL/L (3.6-5.0); SODIUM 140 MMOL/L (135-145); TOTAL PROTEIN 6.4 GM/DL (6.4-8.2)
[2017-05-10 13:49] LABS: BASOPHILS # (AUTO) 0.1 10^3/uL (0.0-0.1); BASOPHILS % (AUTO) 1 % (0-10); EOSINOPHILS # (AUTO) 0.7 10^3/uL (0.0-0.3); EOSINOPHILS % (AUTO) 9 % (0-10); HEMATOCRIT 36 % (40-54); HEMOGLOBIN 11.7 G/DL (13.3-17.7); LYMPHOCYTES # (AUTO) 1.6 X 10^3 (1.0-4.0); LYMPHOCYTES % (AUTO) 20 % (12-44); MEAN CORPUSCULAR HEMOGLOBIN 30 PG (25-34); MEAN CORPUSCULAR HGB CONC 33 G/DL (32-36); MEAN CORPUSCULAR VOLUME 90 FL (80-99); MEAN PLATELET VOLUME 9.9 FL (7.4-10.4); MONOCYTES # (AUTO) 0.9 X 10^3 (0.0-1.0); MONOCYTES % (AUTO) 11 % (0-12); NEUTROPHILS # (AUTO) 4.7 X 10^3 (1.8-7.8); NEUTROPHILS % (AUTO) 59 % (42-75); PLATELET COUNT 285 10^3/uL (130-400); RED BLOOD COUNT 3.97 10^6/uL (4.35-5.85); RED CELL DISTRIBUTION WIDTH 17.8 % (10.0-14.5); WHITE BLOOD COUNT 7.9 10^3/uL (4.3-11.0)
[2017-05-10 14:10] LABS: ALANINE AMINOTRANSFERASE 18 U/L (0-55); ALKALINE PHOSPHATASE 95 U/L (40-136); BILIRUBIN,TOTAL 0.3 MG/DL (0.1-1.0); BUN/CREATININE RATIO 13; CALCIUM 9.4 MG/DL (8.5-10.1); CARBON DIOXIDE 26 MMOL/L (21-32); CHLORIDE 104 MMOL/L (98-107); CREATININE SERUM 0.77 MG/DL (0.60-1.30); GFR ESTIMATED > 60; GLUCOSE 85 MG/DL (70-105); POTASSIUM 3.5 MMOL/L (3.6-5.0); SODIUM 140 MMOL/L (135-145); TOTAL PROTEIN 6.7 GM/DL (6.4-8.2)
[~2017-06-07] VITALS: Ht 193 cm; Wt 108.0 kg
[~2017-06-07 12:14] MED LIST changes: +ACETAMINOPHEN 500 MG TAB (TYLENOL) CANCER CTR ONE; +ACETAMINOPHEN 500 MG TAB (TYLENOL) CANCER CTR PO PRN; +CARBOPLATIN IV SCH; +D5W IV SCH; +FAMOTIDINE 20MG/2ML IV (CANCER CTR) IV SCH; +FOSAPREPITANT DIMEGLUMINE 150 MG in NS (IVPB) CANCER CENTER ONLY 150 ML IV SCH; +GEMCITABINE HCL (GENERIC) 2,000 MG in NS (IVPB) CANCER CENTER 100 ML IV SCH; +IVIG 20 GM (PRIVIGEN) CANCER C 200 ML IV SCH; +NS IV 500 ML (CANCER CENTER) 500 ML ONE; +PALONOSETRON 0.25 MG, DEXAMETHASONE 10 MG/NS 50 ML IVPB IV PRN; +diphenhydrAMINE 25 MG TAB (BENADRYL) CANCER CENTER PO ONE; +diphenhydrAMINE 25 MG TAB (BENADRYL) CANCER CENTER PO SCH; +riTUXimab 500 MG, riTUXimab FOR IV INJ CONC 200 MG in NS (IVPB) CANCER CENTER ONLY 150 ML IV SCH
[2017-06-07 12:49] LABS: BASOPHILS # (AUTO) 0.1 10^3/uL (0.0-0.1); BASOPHILS % (AUTO) 1 % (0-10); EOSINOPHILS # (AUTO) 0.3 10^3/uL (0.0-0.3); EOSINOPHILS % (AUTO) 5 % (0-10); HEMATOCRIT 38 % (40-54); HEMOGLOBIN 12.9 G/DL (13.3-17.7); LYMPHOCYTES # (AUTO) 1.3 X 10^3 (1.0-4.0); LYMPHOCYTES % (AUTO) 20 % (12-44); MEAN CORPUSCULAR HEMOGLOBIN 30 PG (25-34); MEAN CORPUSCULAR HGB CONC 34 G/DL (32-36); MEAN CORPUSCULAR VOLUME 89 FL (80-99); MEAN PLATELET VOLUME 10.2 FL (7.4-10.4); MONOCYTES # (AUTO) 0.6 X 10^3 (0.0-1.0); MONOCYTES % (AUTO) 10 % (0-12); NEUTROPHILS % (AUTO) 63 % (42-75); PLATELET COUNT 213 10^3/uL (130-400); RED BLOOD COUNT 4.31 10^6/uL (4.35-5.85); RED CELL DISTRIBUTION WIDTH 16.4 % (10.0-14.5); WHITE BLOOD COUNT 6.4 10^3/uL (4.3-11.0)
[2017-06-07 13:06] LABS: ALANINE AMINOTRANSFERASE 17 U/L (0-55); ALBUMIN 4.3 GM/DL (3.2-4.5); ALKALINE PHOSPHATASE 86 U/L (40-136); BILIRUBIN,TOTAL 0.5 MG/DL (0.1-1.0); BUN/CREATININE RATIO 13; CALCIUM 9.7 MG/DL (8.5-10.1); CARBON DIOXIDE 24 MMOL/L (21-32); CHLORIDE 104 MMOL/L (98-107); CREATININE SERUM 0.86 MG/DL (0.60-1.30); GFR ESTIMATED > 60; GLUCOSE 94 MG/DL (70-105); POTASSIUM 3.9 MMOL/L (3.6-5.0); SODIUM 139 MMOL/L (135-145); TOTAL PROTEIN 6.5 GM/DL (6.4-8.2)
== END 2017-06-13 | disposition home or self-care (01) ==
LOC: ONC 12:14
PROVIDERS: ATTEND Internal Medicine Hematology & Oncology
DX: Z51.11 Encounter for antineoplastic chemotherapy (principal); C82.05 Follicular lymphoma grade I, lymph nodes of inguinal region and lower limb; D80.1 Nonfamilial hypogammaglobulinemia; I10 Essential (primary) hypertension; E78.00 Pure hypercholesterolemia, unspecified; J44.9 Chronic obstructive pulmonary disease, unspecified; F17.210 Nicotine dependence, cigarettes, uncomplicated; Z79.899 Other long term (current) drug therapy
CPT/HCPCS: 36415; 36591; 80048; 80053; 83615; 85025; 96365; 96366; 96375; 96413; 96415; 96417

== ENCOUNTER → 2017-07-26 | Outpatient (CLI) | payer OTHER, MEDICARE ==
[~2017-07-26] MED LIST changes: -ACETAMINOPHEN 500 MG TAB (TYLENOL) CANCER CTR ONE; -ACETAMINOPHEN 500 MG TAB (TYLENOL) CANCER CTR PO PRN; +BARIUM SUSPENSION 2.1% (VANILLA SILQ) 450 ML PO ONE; -CARBOPLATIN IV SCH; +CATHETER FLUSH 10 ML SYR IV PRN; -D5W IV SCH; -FAMOTIDINE 20MG/2ML IV (CANCER CTR) IV SCH; -FOSAPREPITANT DIMEGLUMINE 150 MG in NS (IVPB) CANCER CENTER ONLY 150 ML IV SCH; -GEMCITABINE HCL (GENERIC) 2,000 MG in NS (IVPB) CANCER CENTER 100 ML IV SCH; +IOHEXOL 350 MG/ML 100 ML (OMNIPAQUE 350) VIAL IV ONE; -IVIG 20 GM (PRIVIGEN) CANCER C 200 ML IV SCH; +NS 250 ML (IVPB) BAG IV ONE; -NS IV 500 ML (CANCER CENTER) 500 ML ONE; -PALONOSETRON 0.25 MG, DEXAMETHASONE 10 MG/NS 50 ML IVPB IV PRN; -diphenhydrAMINE 25 MG TAB (BENADRYL) CANCER CENTER PO ONE; -diphenhydrAMINE 25 MG TAB (BENADRYL) CANCER CENTER PO SCH; -riTUXimab 500 MG, riTUXimab FOR IV INJ CONC 200 MG in NS (IVPB) CANCER CENTER ONLY 150 ML IV SCH
--- NOTE | 2017-07-26 13:36 | Diagnostic Imaging Report ---
PROCEDURE: CT chest, abdomen, and pelvis with contrast. TECHNIQUE: Multiple contiguous axial images were obtained through the chest, abdomen, and pelvis after the administration of intravenous contrast. INDICATION: Non-Hodgkin's lymphoma, follow-up. COMPARISON: Comparison is made with prior CT from 03/29/2017. FINDINGS: CT chest: The right chest wall port has a tip terminating in the SVC. No axillary lymphadenopathy is detected. No significant mediastinal lymphadenopathy is detected. The area of abnormal soft tissue in the left infrahilar region previously described and inseparable from the esophagus is again noted. It is difficult to measure but appears similar at approximately 4.0 cm AP x 4.1 cm transverse compared with 4.4 cm x 4.0 cm. No new abnormality in the mediastinum or monse is seen. There are coronary arterial calcifications present. No pericardial or pleural fluid is identified. The pulmonary parenchyma appears stable. No new mass, infiltrate, or nodule is seen. IMPRESSION: Stable CT of the chest when compared with exam from 03/29/2017. CT abdomen and pelvis: Left lobe of the liver cyst appears stable. No new liver mass is identified. The gallbladder is unremarkable. Pancreas and spleen are unremarkable. No adrenal mass is detected. The kidneys are unremarkable. Aorta is nonaneurysmal. The nonspecific stranding in the central retroperitoneum and root of the mesentery appears similar to prior study. No definite retroperitoneal or mesenteric lymphadenopathy is detected. There is no ascites. Bowel loops are normal caliber. No inguinal or iliac lymphadenopathy is detected. The bladder is unremarkable. Prostate is enlarged. IMPRESSION: Stable CT of the abdomen and pelvis when compared with prior CT from 03/29/2017. No definite abdominal or pelvic lymphadenopathy is present. There is prostatomegaly noted. Dictated by: Dictated on workstation # [id number]
== END ==
LOC: RAD 09:39
PROVIDERS: ATTEND Internal Medicine Hematology & Oncology
DX: C82.59 Diffuse follicle center lymphoma, extranodal and solid organ sites (principal); N40.0 Benign prostatic hyperplasia without lower urinary tract symptoms
CPT/HCPCS: 71260; 74177

== ENCOUNTER 2017-08-30 12:39 | Outpatient (RCR) | payer OTHER, MEDICARE ==
[2017-07-05 12:51] LABS: BASOPHILS # (AUTO) 0.1 10^3/uL (0.0-0.1); BASOPHILS % (AUTO) 1 % (0-10); EOSINOPHILS # (AUTO) 0.3 10^3/uL (0.0-0.3); EOSINOPHILS % (AUTO) 4 % (0-10); HEMATOCRIT 39 % (40-54); LYMPHOCYTES # (AUTO) 1.1 X 10^3 (1.0-4.0); LYMPHOCYTES % (AUTO) 20 % (12-44); MEAN CORPUSCULAR HEMOGLOBIN 29 PG (25-34); MEAN CORPUSCULAR HGB CONC 33 G/DL (32-36); MEAN CORPUSCULAR VOLUME 87 FL (80-99); MEAN PLATELET VOLUME 10.3 FL (7.4-10.4); MONOCYTES # (AUTO) 0.7 X 10^3 (0.0-1.0); MONOCYTES % (AUTO) 13 % (0-12); NEUTROPHILS # (AUTO) 3.5 X 10^3 (1.8-7.8); NEUTROPHILS % (AUTO) 62 % (42-75); PLATELET COUNT 201 10^3/uL (130-400); RED CELL DISTRIBUTION WIDTH 15.6 % (10.0-14.5); WHITE BLOOD COUNT 5.7 10^3/uL (4.3-11.0)
[2017-07-05 13:11] LABS: ALANINE AMINOTRANSFERASE 13 U/L (0-55); ALBUMIN 4.2 GM/DL (3.2-4.5); ALKALINE PHOSPHATASE 93 U/L (40-136); BILIRUBIN,TOTAL 0.3 MG/DL (0.1-1.0); BUN/CREATININE RATIO 13; CALCIUM 9.5 MG/DL (8.5-10.1); CARBON DIOXIDE 25 MMOL/L (21-32); CHLORIDE 106 MMOL/L (98-107); CREATININE SERUM 0.82 MG/DL (0.60-1.30); GFR ESTIMATED > 60; GLUCOSE 101 MG/DL (70-105); POTASSIUM 3.6 MMOL/L (3.6-5.0); SODIUM 140 MMOL/L (135-145); TOTAL PROTEIN 6.5 GM/DL (6.4-8.2)
[2017-08-01 13:41] LABS: BASOPHILS # (AUTO) 0.1 10^3/uL (0.0-0.1); BASOPHILS % (AUTO) 1 % (0-10); EOSINOPHILS # (AUTO) 0.2 10^3/uL (0.0-0.3); EOSINOPHILS % (AUTO) 4 % (0-10); HEMATOCRIT 40 % (40-54); HEMOGLOBIN 13.2 G/DL (13.3-17.7); LYMPHOCYTES # (AUTO) 1.2 X 10^3 (1.0-4.0); LYMPHOCYTES % (AUTO) 19 % (12-44); MEAN CORPUSCULAR HEMOGLOBIN 29 PG (25-34); MEAN CORPUSCULAR HGB CONC 33 G/DL (32-36); MEAN CORPUSCULAR VOLUME 86 FL (80-99); MEAN PLATELET VOLUME 10.2 FL (7.4-10.4); MONOCYTES # (AUTO) 0.6 X 10^3 (0.0-1.0); MONOCYTES % (AUTO) 10 % (0-12); NEUTROPHILS # (AUTO) 4.2 X 10^3 (1.8-7.8); NEUTROPHILS % (AUTO) 67 % (42-75); PLATELET COUNT 218 10^3/uL (130-400); RED BLOOD COUNT 4.62 10^6/uL (4.35-5.85); RED CELL DISTRIBUTION WIDTH 16.4 % (10.0-14.5); WHITE BLOOD COUNT 6.2 10^3/uL (4.3-11.0)
[2017-08-01 14:05] LABS: ALANINE AMINOTRANSFERASE 18 U/L (0-55); ALBUMIN 4.2 GM/DL (3.2-4.5); ALKALINE PHOSPHATASE 89 U/L (40-136); BILIRUBIN,TOTAL 0.4 MG/DL (0.1-1.0); BUN/CREATININE RATIO 14; CALCIUM 9.7 MG/DL (8.5-10.1); CARBON DIOXIDE 24 MMOL/L (21-32); CHLORIDE 107 MMOL/L (98-107); CREATININE SERUM 0.86 MG/DL (0.60-1.30); GFR ESTIMATED > 60; GLUCOSE 102 MG/DL (70-105); SODIUM 140 MMOL/L (135-145); TOTAL PROTEIN 6.7 GM/DL (6.4-8.2)
[~2017-08-30 12:39] MED LIST changes: +ACETAMINOPHEN 500 MG TAB (TYLENOL) CANCER CTR PO PRN; -BARIUM SUSPENSION 2.1% (VANILLA SILQ) 450 ML PO ONE; +CARBOPLATIN IV SCH; -CATHETER FLUSH 10 ML SYR IV PRN; +D5W IV SCH; +FAMOTIDINE 20MG/2ML IV (CANCER CTR) IV SCH; +FOSAPREPITANT DIMEGLUMINE 150 MG in NS (IVPB) CANCER CENTER ONLY 150 ML IV SCH; +GEMCITABINE HCL (GENERIC) 2,000 MG in NS (IVPB) CANCER CENTER 100 ML IV SCH; -IOHEXOL 350 MG/ML 100 ML (OMNIPAQUE 350) VIAL IV ONE; +IVIG 20 GM (PRIVIGEN) CANCER C 200 ML IV SCH; -NS 250 ML (IVPB) BAG IV ONE; +PALONOSETRON 0.25 MG, DEXAMETHASONE 10 MG/NS 50 ML IVPB IV PRN; +diphenhydrAMINE 25 MG TAB (BENADRYL) CANCER CENTER PO SCH; +riTUXimab 500 MG, riTUXimab FOR IV INJ CONC 200 MG in NS (IVPB) CANCER CENTER ONLY 150 ML IV SCH
[2017-08-30 13:01] LABS: BASOPHILS # (AUTO) 0.1 10^3/uL (0.0-0.1); BASOPHILS % (AUTO) 1 % (0-10); EOSINOPHILS # (AUTO) 0.5 10^3/uL (0.0-0.3); EOSINOPHILS % (AUTO) 5 % (0-10); HEMATOCRIT 38 % (40-54); HEMOGLOBIN 13.2 G/DL (13.3-17.7); LYMPHOCYTES # (AUTO) 1.2 X 10^3 (1.0-4.0); LYMPHOCYTES % (AUTO) 13 % (12-44); MEAN CORPUSCULAR HEMOGLOBIN 30 PG (25-34); MEAN CORPUSCULAR HGB CONC 35 G/DL (32-36); MEAN CORPUSCULAR VOLUME 87 FL (80-99); MEAN PLATELET VOLUME 10.1 FL (7.4-10.4); MONOCYTES # (AUTO) 0.8 X 10^3 (0.0-1.0); MONOCYTES % (AUTO) 8 % (0-12); NEUTROPHILS # (AUTO) 6.6 X 10^3 (1.8-7.8); NEUTROPHILS % (AUTO) 72 % (42-75); PLATELET COUNT 214 10^3/uL (130-400); RED BLOOD COUNT 4.39 10^6/uL (4.35-5.85); RED CELL DISTRIBUTION WIDTH 15.9 % (10.0-14.5); WHITE BLOOD COUNT 9.2 10^3/uL (4.3-11.0)
[2017-08-30 13:18] LABS: ALANINE AMINOTRANSFERASE 19 U/L (0-55); ALBUMIN 4.3 GM/DL (3.2-4.5); ALKALINE PHOSPHATASE 98 U/L (40-136); BILIRUBIN,TOTAL 0.8 MG/DL (0.1-1.0); BUN/CREATININE RATIO 15; CARBON DIOXIDE 25 MMOL/L (21-32); CHLORIDE 106 MMOL/L (98-107); CREATININE SERUM 0.89 MG/DL (0.60-1.30); GFR ESTIMATED > 60; GLUCOSE 97 MG/DL (70-105); POTASSIUM 3.8 MMOL/L (3.6-5.0); SODIUM 141 MMOL/L (135-145); TOTAL PROTEIN 6.7 GM/DL (6.4-8.2)
[2017-09-27 13:02] LABS: BASOPHILS # (AUTO) 0.1 10^3/uL (0.0-0.1); BASOPHILS % (AUTO) 1 % (0-10); EOSINOPHILS # (AUTO) 0.8 10^3/uL (0.0-0.3); EOSINOPHILS % (AUTO) 11 % (0-10); HEMATOCRIT 38 % (40-54); HEMOGLOBIN 13.2 G/DL (13.3-17.7); LYMPHOCYTES # (AUTO) 1.4 X 10^3 (1.0-4.0); LYMPHOCYTES % (AUTO) 19 % (12-44); MEAN CORPUSCULAR HEMOGLOBIN 31 PG (25-34); MEAN CORPUSCULAR HGB CONC 35 G/DL (32-36); MEAN CORPUSCULAR VOLUME 89 FL (80-99); MEAN PLATELET VOLUME 10.3 FL (7.4-10.4); MONOCYTES # (AUTO) 0.6 X 10^3 (0.0-1.0); MONOCYTES % (AUTO) 8 % (0-12); NEUTROPHILS # (AUTO) 4.4 X 10^3 (1.8-7.8); NEUTROPHILS % (AUTO) 61 % (42-75); PLATELET COUNT 212 10^3/uL (130-400); RED BLOOD COUNT 4.27 10^6/uL (4.35-5.85); RED CELL DISTRIBUTION WIDTH 15.9 % (10.0-14.5); WHITE BLOOD COUNT 7.3 10^3/uL (4.3-11.0)
[2017-09-27 13:20] LABS: ALANINE AMINOTRANSFERASE 20 U/L (0-55); ALBUMIN 4.5 GM/DL (3.2-4.5); ALKALINE PHOSPHATASE 104 U/L (40-136); BILIRUBIN,TOTAL 0.3 MG/DL (0.1-1.0); BUN/CREATININE RATIO 17; CALCIUM 9.4 MG/DL (8.5-10.1); CARBON DIOXIDE 26 MMOL/L (21-32); CHLORIDE 106 MMOL/L (98-107); CREATININE SERUM 0.86 MG/DL (0.60-1.30); GFR ESTIMATED > 60; GLUCOSE 93 MG/DL (70-105); POTASSIUM 3.9 MMOL/L (3.6-5.0); SODIUM 141 MMOL/L (135-145); TOTAL PROTEIN 6.9 GM/DL (6.4-8.2)
== END 2017-09-27 12:41 | disposition home or self-care (01) ==
LOC: ONC 12:39
PROVIDERS: ATTEND Internal Medicine Hematology & Oncology
DX: C82.05 Follicular lymphoma grade I, lymph nodes of inguinal region and lower limb (principal); D80.1 Nonfamilial hypogammaglobulinemia; I10 Essential (primary) hypertension; E78.00 Pure hypercholesterolemia, unspecified; J44.9 Chronic obstructive pulmonary disease, unspecified; F17.210 Nicotine dependence, cigarettes, uncomplicated; Z79.899 Other long term (current) drug therapy
CPT/HCPCS: 36415; 36591; 80053; 82784; 83615; 85025; 96365; 96366

== ENCOUNTER 2017-11-01 12:27 | Outpatient (RCR) | payer OTHER, MEDICARE ==
[~2017-11-01 12:27] MED LIST changes: +ACETAMINOPHEN 500 MG TAB (TYLENOL) CANCER CTR ONE; -CARBOPLATIN IV SCH; -D5W IV SCH; -FAMOTIDINE 20MG/2ML IV (CANCER CTR) IV SCH; -FOSAPREPITANT DIMEGLUMINE 150 MG in NS (IVPB) CANCER CENTER ONLY 150 ML IV SCH; -GEMCITABINE HCL (GENERIC) 2,000 MG in NS (IVPB) CANCER CENTER 100 ML IV SCH; -PALONOSETRON 0.25 MG, DEXAMETHASONE 10 MG/NS 50 ML IVPB IV PRN; +diphenhydrAMINE 25 MG TAB (BENADRYL) CANCER CENTER PO ONE; -riTUXimab 500 MG, riTUXimab FOR IV INJ CONC 200 MG in NS (IVPB) CANCER CENTER ONLY 150 ML IV SCH
[2017-11-01 13:04] LABS: BASOPHILS # (AUTO) 0.1 10^3/uL (0.0-0.1); BASOPHILS % (AUTO) 2 % (0-10); EOSINOPHILS # (AUTO) 0.8 10^3/uL (0.0-0.3); EOSINOPHILS % (AUTO) 11 % (0-10); HEMATOCRIT 39 % (40-54); HEMOGLOBIN 13.5 G/DL (13.3-17.7); LYMPHOCYTES # (AUTO) 1.1 X 10^3 (1.0-4.0); LYMPHOCYTES % (AUTO) 16 % (12-44); MEAN CORPUSCULAR HEMOGLOBIN 31 PG (25-34); MEAN CORPUSCULAR HGB CONC 35 G/DL (32-36); MEAN CORPUSCULAR VOLUME 89 FL (80-99); MEAN PLATELET VOLUME 10.6 FL (7.4-10.4); MONOCYTES # (AUTO) 0.6 X 10^3 (0.0-1.0); MONOCYTES % (AUTO) 8 % (0-12); NEUTROPHILS # (AUTO) 4.4 X 10^3 (1.8-7.8); NEUTROPHILS % (AUTO) 64 % (42-75); PLATELET COUNT 179 10^3/uL (130-400); RED BLOOD COUNT 4.33 10^6/uL (4.35-5.85); RED CELL DISTRIBUTION WIDTH 14.9 % (10.0-14.5)
[2017-11-01 13:21] LABS: ALANINE AMINOTRANSFERASE 23 U/L (0-55); ALBUMIN 4.3 GM/DL (3.2-4.5); ALKALINE PHOSPHATASE 90 U/L (40-136); BILIRUBIN,TOTAL 0.5 MG/DL (0.1-1.0); BUN/CREATININE RATIO 10; CALCIUM 9.6 MG/DL (8.5-10.1); CARBON DIOXIDE 25 MMOL/L (21-32); CHLORIDE 105 MMOL/L (98-107); CREATININE SERUM 0.86 MG/DL (0.60-1.30); GFR ESTIMATED > 60; GLUCOSE 71 MG/DL (70-105); POTASSIUM 3.8 MMOL/L (3.6-5.0); SODIUM 140 MMOL/L (135-145); TOTAL PROTEIN 6.5 GM/DL (6.4-8.2)
== END 2017-12-20 07:53 | disposition home or self-care (01) ==
LOC: ONC 12:27
PROVIDERS: ATTEND Internal Medicine Hematology & Oncology
DX: C82.05 Follicular lymphoma grade I, lymph nodes of inguinal region and lower limb (principal); D80.1 Nonfamilial hypogammaglobulinemia; I10 Essential (primary) hypertension; E78.00 Pure hypercholesterolemia, unspecified; J44.9 Chronic obstructive pulmonary disease, unspecified; F17.210 Nicotine dependence, cigarettes, uncomplicated; Z79.899 Other long term (current) drug therapy
CPT/HCPCS: 36591; 80053; 82784; 85025; 96365; 96366

== ENCOUNTER 2018-02-07 13:49 | Outpatient (RCR) | payer OTHER, MEDICARE ==
[2017-12-20 14:29] LABS: BASOPHILS # (AUTO) 0.1 10^3/uL (0.0-0.1); BASOPHILS % (AUTO) 1 % (0-10); EOSINOPHILS # (AUTO) 0.8 10^3/uL (0.0-0.3); EOSINOPHILS % (AUTO) 11 % (0-10); HEMATOCRIT 41 % (40-54); HEMOGLOBIN 13.8 G/DL (13.3-17.7); LYMPHOCYTES # (AUTO) 1.2 X 10^3 (1.0-4.0); LYMPHOCYTES % (AUTO) 16 % (12-44); MEAN CORPUSCULAR HEMOGLOBIN 29 PG (25-34); MEAN CORPUSCULAR HGB CONC 34 G/DL (32-36); MEAN CORPUSCULAR VOLUME 87 FL (80-99); MEAN PLATELET VOLUME 10.4 FL (7.4-10.4); MONOCYTES # (AUTO) 0.8 X 10^3 (0.0-1.0); MONOCYTES % (AUTO) 10 % (0-12); NEUTROPHILS # (AUTO) 4.7 X 10^3 (1.8-7.8); NEUTROPHILS % (AUTO) 62 % (42-75); PLATELET COUNT 206 10^3/uL (130-400); RED BLOOD COUNT 4.72 10^6/uL (4.35-5.85); RED CELL DISTRIBUTION WIDTH 14.6 % (10.0-14.5); WHITE BLOOD COUNT 7.6 10^3/uL (4.3-11.0)
[2017-12-20 14:56] LABS: ALANINE AMINOTRANSFERASE 18 U/L (0-55); ALBUMIN 4.5 GM/DL (3.2-4.5); ALKALINE PHOSPHATASE 112 U/L (40-136); BILIRUBIN,TOTAL 0.4 MG/DL (0.1-1.0); BUN/CREATININE RATIO 13; CALCIUM 9.5 MG/DL (8.5-10.1); CARBON DIOXIDE 27 MMOL/L (21-32); CHLORIDE 101 MMOL/L (98-107); CREATININE SERUM 0.82 MG/DL (0.60-1.30); GFR ESTIMATED > 60; GLUCOSE 90 MG/DL (70-105); POTASSIUM 3.6 MMOL/L (3.6-5.0); SODIUM 137 MMOL/L (135-145); TOTAL PROTEIN 6.9 GM/DL (6.4-8.2)
[2018-02-07 09:21] LABS: BASOPHILS # (AUTO) 0.1 10^3/uL (0.0-0.1); BASOPHILS % (AUTO) 1 % (0-10); EOSINOPHILS # (AUTO) 0.6 10^3/uL (0.0-0.3); EOSINOPHILS % (AUTO) 6 % (0-10); HEMATOCRIT 40 % (40-54); HEMOGLOBIN 13.1 G/DL (13.3-17.7); LYMPHOCYTES # (AUTO) 1.2 X 10^3 (1.0-4.0); LYMPHOCYTES % (AUTO) 10 % (12-44); MEAN CORPUSCULAR HEMOGLOBIN 28 PG (25-34); MEAN CORPUSCULAR HGB CONC 33 G/DL (32-36); MEAN CORPUSCULAR VOLUME 86 FL (80-99); MONOCYTES # (AUTO) 0.7 X 10^3 (0.0-1.0); MONOCYTES % (AUTO) 6 % (0-12); NEUTROPHILS # (AUTO) 8.8 X 10^3 (1.8-7.8); NEUTROPHILS % (AUTO) 77 % (42-75); PLATELET COUNT 353 10^3/uL (130-400); RED BLOOD COUNT 4.66 10^6/uL (4.35-5.85); WHITE BLOOD COUNT 11.4 10^3/uL (4.3-11.0)
[2018-02-07 09:42] LABS: ALANINE AMINOTRANSFERASE 17 U/L (0-55); ALBUMIN 4.1 GM/DL (3.2-4.5); ALKALINE PHOSPHATASE 117 U/L (40-136); BILIRUBIN,TOTAL 0.5 MG/DL (0.1-1.0); BUN/CREATININE RATIO 16; CALCIUM 10.1 MG/DL (8.5-10.1); CARBON DIOXIDE 25 MMOL/L (21-32); CHLORIDE 101 MMOL/L (98-107); CREATININE SERUM 0.77 MG/DL (0.60-1.30); GFR ESTIMATED > 60; GLUCOSE 99 MG/DL (70-105); SODIUM 137 MMOL/L (135-145); TOTAL PROTEIN 6.8 GM/DL (6.4-8.2)
[~2018-02-07 13:49] MED LIST changes: -BARIUM SUSPENSION 2.1% (VANILLA SILQ) 450 ML PO ONE; -CATHETER FLUSH 10 ML SYR IV PRN; -IOHEXOL 350 MG/ML 100 ML (OMNIPAQUE 350) VIAL IV ONE; -NS 250 ML (IVPB) BAG IV ONE; -RECEIVED CONTRAST (Hold Metformin) IV SCH
== END 2018-03-20 | disposition home or self-care (01) ==
LOC: ONC 13:49
PROVIDERS: ATTEND Internal Medicine Hematology & Oncology
DX: C82.05 Follicular lymphoma grade I, lymph nodes of inguinal region and lower limb (principal); D80.1 Nonfamilial hypogammaglobulinemia; I10 Essential (primary) hypertension; E78.00 Pure hypercholesterolemia, unspecified; J44.9 Chronic obstructive pulmonary disease, unspecified; F17.210 Nicotine dependence, cigarettes, uncomplicated; Z79.899 Other long term (current) drug therapy
CPT/HCPCS: 36591; 80053; 83615; 85025

== ENCOUNTER → 2018-02-07 | Outpatient (CLI) | payer OTHER, MEDICARE ==
[~2018-02-07] MED LIST changes: -ACETAMINOPHEN 500 MG TAB (TYLENOL) CANCER CTR ONE; -ACETAMINOPHEN 500 MG TAB (TYLENOL) CANCER CTR PO PRN; +BARIUM SUSPENSION 2.1% (VANILLA SILQ) 450 ML PO ONE; +CATHETER FLUSH 10 ML SYR IV PRN; +IOHEXOL 350 MG/ML 100 ML (OMNIPAQUE 350) VIAL IV ONE; -IVIG 20 GM (PRIVIGEN) CANCER C 200 ML IV SCH; +NS 250 ML (IVPB) BAG IV ONE; +RECEIVED CONTRAST (Hold Metformin) IV SCH; -diphenhydrAMINE 25 MG TAB (BENADRYL) CANCER CENTER PO ONE; -diphenhydrAMINE 25 MG TAB (BENADRYL) CANCER CENTER PO SCH
--- NOTE | 2018-02-07 11:11 | Diagnostic Imaging Report ---
PROCEDURE: CT chest, abdomen, and pelvis with contrast. TECHNIQUE: Multiple contiguous axial images were obtained through the chest, abdomen, and pelvis after the administration of intravenous contrast. INDICATION: Lymphoma, followup. Comparison is made with prior CT from 10/25/2017. CT CHEST: A right chest wall port remains in place with tip at the SVC right atrial junction. No axillary lymphadenopathy is detected. Previously noted soft tissue in the subcarinal/left hilar region is stable at approximately 4.1 x 4.1 cm. However, there is a soft tissue component slightly cephalic to this in the left paratracheal location just above the shilpa. This soft tissue measures 2.9 x 1.8 cm. This was barely visible on prior exam. Remainder of the mediastinum is unremarkable. Coronary arterial calcifications are again noted. No pericardial or pleural fluid identified. Imaging through the pulmonary parenchyma does demonstrate a new airspace infiltrate in the left lower lobe, suggestive of pneumonia. Right lung is fairly clear. IMPRESSION: 1. Development of left lower lobe pneumonia. In addition, there is an enlarging soft tissue left paratracheal location of the mediastinum consistent with slight worsening lymphadenopathy. CT ABDOMEN AND PELVIS: Left lobe hepatic cysts appear stable. No new liver mass is identified. The gallbladder is unremarkable. The pancreas and spleen are unremarkable. No adrenal mass is detected. Kidneys are unremarkable. Aorta remains non-aneurysmal but heavily calcified. No definite central retroperitoneal or mesenteric lymphadenopathy is identified. Bowel loops remain normal caliber and without evidence of obstruction. No ascites. No definite pelvic lymphadenopathy is seen. The bladder is unremarkable. Prostate appears enlarged. Bony structures are intact. IMPRESSION: 1. Stable CT of the abdomen and pelvis since exam from 10/25/2017. No abdominal or pelvic lymphadenopathy is detected. 2. Prostatomegaly. Dictated by: Dictated on workstation # [id number]
== END ==
LOC: RAD 09:00
PROVIDERS: ATTEND Internal Medicine Hematology & Oncology
DX: C82.59 Diffuse follicle center lymphoma, extranodal and solid organ sites (principal)
CPT/HCPCS: 71260; 74177

== ENCOUNTER 2018-03-14 13:33 | Outpatient (RCR) | payer BC, MEDICARE ==
[~2018-03-14 13:33] MED LIST changes: +ACETAMINOPHEN 500 MG TAB (TYLENOL) CANCER CTR PO SCH; +FAMOTIDINE 20MG/2ML IV (CANCER CTR) IV SCH; +FOSAPREPITANT 150 MG/NS 150 MG IVPB (CANCER CTR) IV SCH; +GEMCITABINE HCL (GENERIC) 2,000 MG in NS (IVPB) CANCER CENTER 100 ML IV SCH; +NS IV 1000 ML (CANCER CTR) 1,000 ML IV SCH; +PALONOSETRON 0.25 MG, DEXAMETHASONE 10 MG/NS 50 ML IVPB IV SCH; +diphenhydrAMINE 25 MG TAB (BENADRYL) CANCER CENTER PO SCH; +riTUXimab 500 MG, riTUXimab FOR IV INJ CONC 200 MG in NS (IVPB) CANCER CENTER ONLY 150 ML IV SCH
== END 2018-05-15 | disposition home or self-care (01) ==
LOC: ONC 13:33
PROVIDERS: ATTEND Internal Medicine Hematology & Oncology
DX: C82.05 Follicular lymphoma grade I, lymph nodes of inguinal region and lower limb (principal); D80.1 Nonfamilial hypogammaglobulinemia; I10 Essential (primary) hypertension; E78.00 Pure hypercholesterolemia, unspecified; J44.9 Chronic obstructive pulmonary disease, unspecified; F17.210 Nicotine dependence, cigarettes, uncomplicated; Z79.899 Other long term (current) drug therapy
CPT/HCPCS: 96523; 99213

== ENCOUNTER → 2018-06-13 | Outpatient (CLI) | payer MEDICARE, OTHER ==
[~2018-06-13] MED LIST changes: -ACETAMINOPHEN 500 MG TAB (TYLENOL) CANCER CTR PO SCH; +BARIUM SUSPENSION 2.1% (VANILLA SILQ) 450 ML PO ONE; -FAMOTIDINE 20MG/2ML IV (CANCER CTR) IV SCH; -FOSAPREPITANT 150 MG/NS 150 MG IVPB (CANCER CTR) IV SCH; -GEMCITABINE HCL (GENERIC) 2,000 MG in NS (IVPB) CANCER CENTER 100 ML IV SCH; +HOLD METFORMIN - RECEIVED CONTRAST 20 ML VIAL IV SCH; +IOHEXOL 350 MG/ML 100 ML (OMNIPAQUE 350) VIAL IV ONE; -NS IV 1000 ML (CANCER CTR) 1,000 ML IV SCH; -PALONOSETRON 0.25 MG, DEXAMETHASONE 10 MG/NS 50 ML IVPB IV SCH; -diphenhydrAMINE 25 MG TAB (BENADRYL) CANCER CENTER PO SCH; -riTUXimab 500 MG, riTUXimab FOR IV INJ CONC 200 MG in NS (IVPB) CANCER CENTER ONLY 150 ML IV SCH
--- NOTE | 2018-06-13 11:10 | Diagnostic Imaging Report ---
PROCEDURE: CT chest, abdomen, and pelvis with contrast. TECHNIQUE: Multiple contiguous axial images were obtained through the chest, abdomen, and pelvis after the administration of intravenous contrast. Auto Exposure Controls were utilized during the CT exam to meet ALARA standards for radiation dose reduction. INDICATION: Follicular large cell non-Hodgkin's lymphoma. COMPARISON: Comparison is made to study of 02/07/2018. CT CHEST: Similar to the previous study, mediastinal adenopathy is again noted. Left paratracheal lymph node at the aorticopulmonary window level measures 2.6 x 1.8 cm. This is not significantly changed when compared to previous study. Ill-defined increased density in the subcarinal region measures approximately 5.0 x 3.5 cm. Given differences in positioning this is not significantly changed compared to previous study. There is background centrilobular emphysema throughout the lungs. Prominent interstitial markings in the lung bases are likely chronic and related to scarring. There is no significant pleural or pericardial fluid. There are coronary artery calcifications. No new pathologic adenopathy is seen in the chest. IMPRESSION: 1. Stable mediastinal lymphadenopathy without evidence of new pathologic adenopathy in the chest. 2. Probable chronic interstitial lung disease is seen in the lung bases. CT ABDOMEN AND PELVIS: There is no focal hepatic or splenic abnormality. Stomach is incompletely distended which limits evaluation. Gastric rugae appear to be prominent. There is no evidence of gallbladder, pancreatic or splenic abnormality. Adrenal glands and kidneys are also stable and unremarkable. There is no free fluid in the abdomen. There is no evidence of pathologic adenopathy in the mesentery or retroperitoneum. There is no evidence of bowel dilatation or obstruction. There is moderate aortoiliac atherosclerotic calcification. Partially opacified urinary bladder is unremarkable. There is no evidence of pelvic adenopathy. Degenerative changes in the hips and lumbar spine are stable. IMPRESSION: Stable appearance of the abdomen and pelvis. There is no evidence of acute abnormality or pathologic adenopathy. Dictated by: Dictated on workstation # [id number]
== END ==
LOC: RAD 09:17
PROVIDERS: ATTEND Internal Medicine Hematology & Oncology
DX: C82.59 Diffuse follicle center lymphoma, extranodal and solid organ sites (principal)
CPT/HCPCS: 71260; 74177

== ENCOUNTER 2018-06-20 13:30 | Outpatient (RCR) | payer OTHER, MEDICARE ==
[2018-04-15 13:50] LABS: BASOPHILS # (AUTO) 0.2 10^3/uL (0.0-0.1); BASOPHILS % (AUTO) 3 % (0-10); EOSINOPHILS # (AUTO) 0.5 10^3/uL (0.0-0.3); EOSINOPHILS % (AUTO) 6 % (0-10); HEMATOCRIT 40 % (40-54); LYMPHOCYTES % (AUTO) 12 % (12-44); MEAN CORPUSCULAR HEMOGLOBIN 27 PG (25-34); MEAN CORPUSCULAR HGB CONC 32 G/DL (32-36); MEAN CORPUSCULAR VOLUME 84 FL (80-99); MEAN PLATELET VOLUME 9.7 FL (7.4-10.4); MONOCYTES # (AUTO) 0.3 X 10^3 (0.0-1.0); MONOCYTES % (AUTO) 4 % (0-12); NEUTROPHILS % (AUTO) 75 % (42-75); PLATELET COUNT 289 10^3/uL (130-400); RED CELL DISTRIBUTION WIDTH 17.8 % (10.0-14.5)
[2018-04-15 14:08] LABS: ALANINE AMINOTRANSFERASE 21 U/L (0-55); ALBUMIN 3.7 GM/DL (3.2-4.5); ALKALINE PHOSPHATASE 84 U/L (40-136); BILIRUBIN,TOTAL 0.5 MG/DL (0.1-1.0); BUN/CREATININE RATIO 11; CALCIUM 9.2 MG/DL (8.5-10.1); CARBON DIOXIDE 26 MMOL/L (21-32); CHLORIDE 104 MMOL/L (98-107); CREATININE SERUM 0.72 MG/DL (0.60-1.30); GFR ESTIMATED > 60; GLUCOSE 130 MG/DL (70-105); POTASSIUM 3.6 MMOL/L (3.6-5.0); SODIUM 141 MMOL/L (135-145); TOTAL PROTEIN 5.8 GM/DL (6.4-8.2)
[2018-06-13 09:45] LABS: BASOPHILS # (AUTO) 0.2 10^3/uL (0.0-0.1); BASOPHILS % (AUTO) 2 % (0-10); EOSINOPHILS # (AUTO) 0.4 10^3/uL (0.0-0.3); EOSINOPHILS % (AUTO) 5 % (0-10); HEMATOCRIT 39 % (40-54); HEMOGLOBIN 12.7 G/DL (13.3-17.7); LYMPHOCYTES # (AUTO) 1.1 X 10^3 (1.0-4.0); LYMPHOCYTES % (AUTO) 16 % (12-44); MEAN CORPUSCULAR HEMOGLOBIN 28 PG (25-34); MEAN CORPUSCULAR HGB CONC 33 G/DL (32-36); MEAN CORPUSCULAR VOLUME 86 FL (80-99); MEAN PLATELET VOLUME 10.4 FL (7.4-10.4); MONOCYTES # (AUTO) 0.5 X 10^3 (0.0-1.0); MONOCYTES % (AUTO) 7 % (0-12); NEUTROPHILS # (AUTO) 4.9 X 10^3 (1.8-7.8); NEUTROPHILS % (AUTO) 70 % (42-75); PLATELET COUNT 227 10^3/uL (130-400); RED CELL DISTRIBUTION WIDTH 17.9 % (10.0-14.5)
[2018-06-13 10:07] LABS: ALANINE AMINOTRANSFERASE 18 U/L (0-55); ALBUMIN 4.2 GM/DL (3.2-4.5); ALKALINE PHOSPHATASE 105 U/L (40-136); BILIRUBIN,TOTAL 0.5 MG/DL (0.1-1.0); BUN/CREATININE RATIO 22; CALCIUM 9.7 MG/DL (8.5-10.1); CARBON DIOXIDE 26 MMOL/L (21-32); CHLORIDE 103 MMOL/L (98-107); CREATININE SERUM 0.95 MG/DL (0.60-1.30); GFR ESTIMATED > 60; GLUCOSE 97 MG/DL (70-105); POTASSIUM 4.3 MMOL/L (3.6-5.0); SODIUM 136 MMOL/L (135-145); TOTAL PROTEIN 6.3 GM/DL (6.4-8.2)
[~2018-06-20 13:30] MED LIST changes: -BARIUM SUSPENSION 2.1% (VANILLA SILQ) 450 ML PO ONE; -HOLD METFORMIN - RECEIVED CONTRAST 20 ML VIAL IV SCH; -IOHEXOL 350 MG/ML 100 ML (OMNIPAQUE 350) VIAL IV ONE
== END 2018-07-14 | disposition home or self-care (01) ==
LOC: ONC 13:30
PROVIDERS: ATTEND Internal Medicine Hematology & Oncology
DX: C82.05 Follicular lymphoma grade I, lymph nodes of inguinal region and lower limb (principal); D80.1 Nonfamilial hypogammaglobulinemia; I10 Essential (primary) hypertension; E78.00 Pure hypercholesterolemia, unspecified; J44.9 Chronic obstructive pulmonary disease, unspecified; F17.210 Nicotine dependence, cigarettes, uncomplicated; Z79.899 Other long term (current) drug therapy
CPT/HCPCS: 36591; 80053; 83615; 85025; 96523; 99213

== ENCOUNTER 2018-07-25 11:58 | Outpatient (RCR) | payer MEDICARE, OTHER | END 2018-10-23 | disposition home or self-care (01) | LOC: ONC 11:58 | PROVIDERS: ATTEND Internal Medicine Hematology & Oncology | DX: C82.05 Follicular lymphoma grade I, lymph nodes of inguinal region and lower limb (principal); D80.1 Nonfamilial hypogammaglobulinemia; I10 Essential (primary) hypertension; E78.00 Pure hypercholesterolemia, unspecified; J44.9 Chronic obstructive pulmonary disease, unspecified; F17.210 Nicotine dependence, cigarettes, uncomplicated; Z79.899 Other long term (current) drug therapy; Z45.2 Encounter for adjustment and management of vascular access device | CPT/HCPCS: 96523 ==